=== PATIENT | female | born 1940 | race Two or more races ===

== ENCOUNTER 2024-05-25 20:14 | Inpatient (IN) | payer OTHER ==
[~2024-05-25] VITALS: Ht 157.5 cm; Wt 70.4 kg
--- NOTE | 2024-05-25 20:57 | ED.PDOC ---
Altered Mental Status HPI Comments 83-year-old female came to ER with daughter due to confusion. Per daughter, patient has history of dementia, noted for the past few days worsening of confusion and altered mental status, progressive weakness with inability/difficulty ambulating/standing up with recurrent falls. Currently complaining of bilateral upper extremity pain from possible fall. Vital signs were stable on arrival. No signs of head trauma. Patient appears to be in pain. Chief Complaint: Confusion Time Seen by MD: 20:57 Reviewed Notes: Nurses Notes Allergies: Coded Allergies: NO KNOWN ALLERGIES (Unverified , 05/25/24) Information Source: Relative Mode of Arrival: Wheelchair Severity: Unable to Care for Self Timing: Hours Duration: Since onset Prehospital treatment: None Quality: Decreased Alertness, Change in Behavior History of: Dementia Past Medical History PAST MEDICAL HISTORY: Dementia Surgical History: Denies all surgeries COMMUNICATIONS BILLING ANALYST History: Denies all COMMUNICATIONS BILLING ANALYST Hx Family History Family History: Reviewed,noncontributory to illness Social History Smoker: Non-Smoker Alcohol: Denies ETOH Use Drugs: Denies Drug Use Lives In: Home Constitutional: reports: fatigue, malaise, weakness; denies: chills, diaphoresis, fever, sweats, others EENTM: denies: blurred vision, double vision, ear bleeding, ear discharge, ear drainage, ear pain, ear ringing, eye pain, eye redness, hearing loss, mouth pain, mouth swelling, nasal discharge, nose bleeding, nose congestion, nose pain, photophobia, tearing, throat pain, throat swelling, voice changes, others Respiratory: denies: cough, hemoptysis, orthopnea, SOB at rest, shortness of breath, SOB with excertion, stridor, wheezing, others Cardiovascular: denies: chest pain, dizzy spells, diaphoresis, Dyspnea on exertion, edema, irregular heart beat, left arm pain, lightheadedness, palpitations, PND, syncope, others Gastrointestinal: denies: abdomen distended, abdominal pain, blood streaked bowels, constipated, diarrhea, dysphagia, difficulty swallowing, hematemesis, melena, nausea, poor appetite, poor fluid intake, rectal bleeding, rectal pain, vomiting, others Genitourinary: denies: abnormal vagina bleeding, burning, dyspareunia, dysuria, flank pain, frequency, hematuria, incontinence, pain, , vagina discharge, urgency, others Neurological: reports: weakness; denies: dizziness, fainting, headache, left sided numbness, left sided weakness, numbness, paresthesia, pre-existing deficit, right sided numbness, right sided weakness, seizure, speech problems, tingling, tremors, others Musculoskeletal: denies: back pain, gout, joint pain, joint swelling, muscle pain, muscle stiffness, neck pain, others Integumetry: denies: bruises, change in color, change in hair/nails, dryness, laceration, lesions, lumps, rash, wounds, others Allergic/Immunocompromised: denies: Difficulty Healing, Frequent Infections, Hives, Itching, others Hematologic/Lymphatic: denies: anemia, blood clots, easy bleeding, easy bruising, swollen glands, others Endocrine: denies: excessive hunger, excessive sweating, excessive thirst, excessive urination, flushing, intolerance to cold, intolerance to heat, unexplained weight gain, unexplained weight loss, others Psychiatric: denies: anxiety, bipolar disorder, depression, hopeless, panic disorder, schizophrenia, sleepless, suicidal, others Unable to Obtain due to: Altered Mental Status, Dementia Physical Exam General Appearance: Moderate Distress (Patient appears to be in [id number] distress due to bilateral wrist pain concerns as well as confusion.), Normal HEENT: Normal ENT Inspection, Pharynx Normal, TMs Normal Neck: Full Range of Motion, Non-Tender, Normal, Normal Inspection Respiratory: Chest Non-Tender, Lungs Clear, No Accessory Muscle Use, No Respiratory Distress, Normal Breath Sounds Cardiovascular: No Edema, No JVD, No Murmur, No Gallop, Normal Peripheral Pulses, Regular Rate/Rhythm Breast Exam: Deferred Gastrointestinal: No Organomegaly, Non Tender, No Pulsatile Mass, Normal Bowel Sounds, Soft Genitalia: Deferred Pelvic: Deferred Rectal: Deferred Extremities: No calf tenderness, Normal capillary refill, No pedal edema, Other (Bilateral wrists are diffusely tender to palpation throughout dorsal and ventral aspects. Left wrist reveals some unusual angulation. No definitive crepitus appreciated.) Musculoskeletal : Apperance: Normal Neurologic: Motor Weakness, No Sensory Deficits Cerebellar Function: NOT DONE Reflexes: NOT DONE Skin: Dry, Normal Color, Warm Lymphatic: No Adenopathy Was a procedure done? Was a procedure done?: No Differential Diagnosis (ALOC) Differential Diagnosis: Encephalopathy, Sepsis, CVA, Other (Dementia, wrist fracture, forearm fracture, wrist sprain, fall risk, failure to thrive) X-Ray, Labs, Meds, VS Vital Signs Date Time Temp Pulse Resp B/P (MAP) Pulse Ox O2 Delivery O2 Flow Rate FiO2 05/26/24 02:02 98.0 82 27 164/89 (114) 98 98.0 05/26/24 00:10 70 05/25/24 22:12 71 05/25/24 20:58 72 05/25/24 20:46 98.3 81 20 123/92 (102) 98 Lab Test 05/25/24 23:11 05/25/24 21:09 05/25/24 20:44 Range/Units Troponin I High Sensitivity 5 6 </=34 ng/L White Blood Count 8.4 4.4-10.8 10^3/uL Red Blood Count 4.74 4.0-5.20 10^6/uL Hemoglobin 11.8 L 12.2-16.2 g/dL Hematocrit 36.4 36.0-46.0 % Mean Corpuscular Volume 76.9 L 80.0-100.0 fL Mean Corpuscular Hemoglobin 24.9 L 28.0-32.0 pg Mean Corpuscular Hemoglobin Concent 32.4 32.0-36.0 g/dL Red Cell Distribution Width 26.8 H 11.8-14.3 % Platelet Count 280 140-450 10^3/uL Mean Platelet Volume 9.0 6.9-10.8 fL Neutrophils (%) (Auto) 84.4 H 37.0-80.0 % Lymphocytes (%) (Auto) 7.2 L 10.0-50.0 % Monocytes (%) (Auto) 7.2 0.0-12.0 % Eosinophils (%) (Auto) 0.6 0.0-7.0 % Basophils (%) (Auto) 0.6 0.0-2.0 % Neutrophils # (Auto) 7.1 1.6-8.6 10 ^3/uL Lymphocytes # (Auto) 0.6 0.4-5.4 10 ^3/uL Monocytes # (Auto) 0.6 0-1.3 10 ^3/uL Eosinophils # (Auto) 0 0-0.8 10 ^3/uL Basophils # (Auto) 0.1 0-0.2 10 ^3/uL Nucleated Red Blood Cells 0.0 % Platelet Estimate Adequate Anisocytosis (manual) Moderate Microcytosis Slight Ovalocytes Few Schistocytes Few D-Dimer, Quantitative 3.50 H 0.0-0.49 mg/L FEU Sodium Level 142 136-145 mmol/L Potassium Level 4.0 3.5-5.1 mmol/L Chloride Level 110 H 98-107 mmol/L Carbon Dioxide Level 24 20-31 mmol/L Anion Gap 8 5-15 Blood Urea Nitrogen 31 H 9-23 mg/dL Creatinine 1.15 H 0.550-1.02 mg/dL Glomerular Filtration Rate Calc 48 >90 mL/min BUN/Creatinine Ratio 27.0 H 10.0-20.0 Serum Glucose 143 H 74-106 mg/dL Lactic Acid Level 1.7 0.4-2.0 mmol/L Calcium Level 10.1 8.7-10.4 mg/dL Magnesium Level 2.2 1.6-2.6 mg/dL Total Bilirubin 0.3 0.2-1.0 mg/dL Aspartate Amino Transferase (AST) 28 13-40 U/L Alanine Aminotransferase (ALT) 18 7-40 U/L Alkaline Phosphatase 98 46-116 U/L Total Protein 7.2 5.7-8.2 g/dL Albumin 4.5 3.2-4.8 g/dL POC Glucose 138 H 70-106 mg/dl Current Medications Medications (Trade) Dose Ordered Sig/Nancy Route Start Time Stop Time Status Last Admin Enoxaparin Sodium (Lovenox) 40 mg ONCE ONCE SC 05/26/24 01:30 05/26/24 01:32 DC 05/26/24 02:30 Ceftriaxone Sodium 50 ml @ 100 mls/hr ONCE ONCE IV 05/26/24 01:45 05/26/24 02:14 DC 05/26/24 02:30 X-Ray, Labs, Meds, VS Comment All studies performed the ED were reviewed by me personally. Urinalysis was p ending at time of this note. Laboratories revealed what appears to be an acute on chronic renal concern as well as elevated D-dimer. Patient will require a V/Q scan to rule out PE. Patient will be started on Lovenox prophylactically. CT studies of the head was unremarkable for any acute intracranial process. Imaging studies of bilateral forearms with right distal radial fracture as well as a small styloid avulsion fracture. Left wrist revealed an distal ulnar fracture. Patient will be splinted for both and transferred to [facility] for continued care. Daughter states that the patient did test positive for a UTI a few days back, but she has not started the antibiotics. Patient will be given a dose of Rocephin prior to transfer. Spoke with Dr. Ellsworth at [facility] and advised him of all ED study findings. He agreed to accept the patient is a transfer. Authorization number [id number]. Time of 1ST Reevaluation: Reevaluation 1ST: Improved Consultation: PCP Patient Education/Counseling: Diagnosis, Treatment, Other (Patient has dementia) Family Education/Counseling: Diagnosis, Treatment Departure 1 Departure Time of Disposition: :24 Impression: Primary Impression: Confusion Additional Impressions: Elevated d-dimer Jyisi-uy-mnpozxc kidney injury Fracture of right distal radius Left ulnar fracture UTI (urinary tract infection) Disposition: 02 SHORT TERM HOSPITAL Condition: Fair Discharged With: Self, Relative Critical Care Note Critical Care Time?: No Stability Stability form required: No Heart Score Heart Score: Heart Score Response (Comments) Value History N/A 0 EKG N/A 0 Age N/A 0 Risk Factors N/A 0 Troponin N/A 0 Total 0 I personally scribed for ELIO AMOR PAC ([email or web address]) on 05/25/24 at 20:57. Electronically submitted by Mc Mendes ([email or web address]). ELIO AMOR PAC May 25, 2024 20:57
[2024-05-25] MEDS: HYDROcodone-ACET 5/325MG TAB PO ONE (21:00)
--- NOTE | 2024-05-25 21:31 | ECG ---
[facility] Test Date: 2024-05-25 Test Time: 20:58:57 Pat Name: PEYTON MODI Department: ER Room: 0222 Gender: F Hearing Therapist: DEVIN : 1940 Requested By: ELIO AMOR Order Number: [id number] Reading MD: Daniele Jacobs Measurements Intervals [place] Rate: 72 P: 53 W[place]: 153 QRS: 42 QRSD: 176 T: 19 QT: 365 QTc: 400 Interpretive Statements Sinus rhythm Probable left ventricular hypertrophy Inferior infarct, old Lateral infarct, acute Baseline wander in lead(s) I Electronically Signed On 06-02-2024 14:49:40 PST by Daniele Jacobs Please click the below link to view image of tracing.
[2024-05-25 21:33] LABS: Basophils # (auto) 0.1 10 ^3/uL (0-0.2); Basophils % (auto) 0.6 % (0.0-2.0); Eosinophils # (auto) 0 10 ^3/uL (0-0.8); Eosinophils % (auto) 0.6 % (0.0-7.0); Hematocrit 36.4 % (36.0-46.0); Hemoglobin 11.8 g/dL (12.2-16.2); Lymphocytes # (auto) 0.6 10 ^3/uL (0.4-5.4); Lymphocytes % (auto) 7.2 % (10.0-50.0); Mean Corpuscular Hemoglobin 24.9 pg (28.0-32.0); Mean Corpuscular Hgb Conc. 32.4 g/dL (32.0-36.0); Mean Corpuscular Volume 76.9 fL (80.0-100.0); Monocytes # (auto) 0.6 10 ^3/uL (0-1.3); Monocytes % (auto) 7.2 % (0.0-12.0); Neutrophils # (auto) 7.1 10 ^3/uL (1.6-8.6); Neutrophils % (auto) 84.4 % (37.0-80.0); Platelet Count (auto) 280 10^3/uL (140-450); Red Blood Cells 4.74 10^6/uL (4.0-5.20); White Blood Cell 8.4 10^3/uL (4.4-10.8)
[2024-05-25 21:39] LABS: Red Cell Distribution Width 26.8 % (11.8-14.3)
--- NOTE | 2024-05-25 21:48 | DVH ---
CLINICAL INDICATION: Trauma/fall TECHNIQUE: 2 radiographic views of the right forearm were obtained. Comparison: None FINDINGS/IMPRESSION: Minimally displaced fracture of the distal radius is suspected correlate with tenderness over that ar ea. The visualized joint space is well maintained. The alignment is anatomical. There is no radiopaque foreign body.
[2024-05-25 21:49] LABS: Alanine Aminotransferase 18 U/L (7-40); Albumin 4.5 g/dL (3.2-4.8); Alkaline Phosphatase 98 U/L (46-116); Anion Gap 8 (5-15); Aspartate Aminotransferase 28 U/L (13-40); Calcium 10.1 mg/dL (8.7-10.4); Carbon Dioxide 24 mmol/L (20-31); Magnesium 2.2 mg/dL (1.6-2.6); Sodium 142 mmol/L (136-145); Total Protein 7.2 g/dL (5.7-8.2)
--- NOTE | 2024-05-25 21:49 | DVH ---
CLINICAL INDICATION: Trauma/fall TECHNIQUE: 3 radiographic views of the right wrist were obtained. Comparison: None FINDINGS/IMPRESSION: Slightly impacted fracture through the distal radius is noted with possible avulsion off the styloid process of the distal ulna. The visualized joint space is well maintained. The alignment is anatomical. There is no radiopaque foreign body.
--- NOTE | 2024-05-25 21:50 | DVH ---
CLINICAL INDICATION: Trauma/fall TECHNIQUE: 3 views of the left wrist. Comparison: None FINDINGS/IMPRESSION: Acute ulnar styloid fracture. Indeterminate age fracture deformity of the distal radius Mild soft tissue swelling throughout the wrist
[2024-05-25 21:53] LABS: Bilirubin, Total 0.3 mg/dL (0.2-1.0); Blood Urea Nitrogen 31 mg/dL (9-23); Chloride 110 mmol/L (98-107); Glucose 143 mg/dL (74-106)
--- NOTE | 2024-05-25 21:53 | DVH ---
CLINICAL INDICATION: Trauma/fall TECHNIQUE: 2 radiographic views of the left wrist were obtained. Comparison: None FINDINGS/IMPRESSION: There is fracture of the distal radius which may represent chronic healed malunion fracture or acute impacted fracture. Recommend correlation with point tenderness and history. Questionable mild soft t issue edema of the distal forearm. There is chronic fracture deformity of the ulnar styloid. There is positive ulnar variance. There is deformity of the wrist on AP view. Moderate degenerative changes of the 1st carpometacarpal joint
--- NOTE | 2024-05-25 21:53 | DVH ---
CLINICAL INDICATION: Trauma/fall TECHNIQUE: 3 radiographic views of the right hand were obtained. Comparison: None FINDINGS/IMPRESSION: Marked narrowing and irregularity is noted of the carpometacarpal joint of the thumb.. There is a small calcification off the tip of the styloid process of the ulna can not exclude small a vulsion injury. The visualized joint space is well maintained. The alignment is anatomical. There is no radiopaque foreign body.
--- NOTE | 2024-05-25 21:53 | DVH ---
CHEST RADIOGRAPH Indication: Shortness of breath Technique: Single frontal view of the chest was obtained COMPARISON: None FINDINGS: Lines and Tubes: None Lungs: Clear Pleura: No effusion. No pneumothorax. Cardiomediastinal contours: Cardiomegaly Bones: Chronic fracture deformity of the right humeral head. IMPRESSION: 1. No acute disease.
--- NOTE | 2024-05-25 21:53 | DVH ---
EXAM: CT HEAD WITHOUT CONTRAST INDICATION: Confusion TECHNIQUE: CT of the head without intravenous contrast. Radiation Dose : 1. Head: CT Dose: CTDI volume is 57 mGy. Dose-length product is 2237 mGy*cm The dose indicators for CT are the volume Computed Tomography (CT) Dose Index (CTDIvol) and the Dose Length Product (DLP), and are measured in units of mGy and mGy-cm, respectively. These indicators are not patient dose, but values generated from the CT scanner acquisition factors. The report includes radiation exposure data for exposures received during this examination. COMPARISON: None FINDINGS: There is no evidence of acute intracranial hemorrhage, extra-axial collection, mass effect, midline s hift, herniation or hydrocephalus. The ventricles, sulci and cisterns are age appropriate. The rivera-white differentiation is intact. Patchy periventricular and subcortical white matter hypoattenuation is nonspecific but may be related to small vessel ischemic disease. The visualized paranasal sinuses and mastoid air cells are clear. The surrounding soft tissues and osseous structures are unremarkable. IMPRESSION: 1. No acute intracranial abnormality. Radiation optimization: All CT scans at this facility use at least one of these dose optimization pradip hniques: automated exposure control mA and/or kV adjustment per patient size (includes targeted exam s where dose is matched to clinical indication) or iterative reconstruction.
[2024-05-25 22:15] LABS: Platelet Estimate Adequate
[2024-05-25 22:16] LABS: Anisocytosis Moderate; Ovalocytes FEW
[2024-05-26] VITALS (9 sets, daily range): BP systolic 151; BP diastolic 79; PULSE 71–96; RESP 16–28; TEMP 97.9; O2SAT 93–98
--- NOTE | 2024-05-26 00:12 | ECG ---
[facility] Test Date: 2024-05-26 Test Time: 00:10:22 Pat Name: PEYTON MODI Department: ER Room: 0222 Gender: F Scleroscope Tester: DEVIN : 1940 Requested By: ELIO AMOR Order Number: [id number] Reading MD: Daniele Jacobs Measurements Intervals [place] Rate: 70 P: 78 DC: 149 QRS: 60 QRSD: 78 T: 54 QT: 385 QTc: 416 Interpretive Statements Sinus rhythm Inferior infarct, acute (LCx) Electronically Signed On 06-02-2024 14:52:08 PST by Daniele Jacobs Please click the below link to view image of tracing.
[2024-05-26] MEDS: ENOXAPARIN SOD 40 MG/0.4 ML SYRINGE SC ONE (02:30)
[2024-05-26] MEDS: cefTRIAXone 1GM/50ML D5W 50 ML IV ONE (02:30)
[2024-05-26] MEDS: HYDROcodone-ACET 5/325MG TAB PO ONE (06:16)
--- NOTE | 2024-05-26 07:19 | ECG ---
[facility] Test Date: 2024-05-25 Test Time: 22:12:31 Pat Name: PEYTON MODI Department: ER Room: 0222 Gender: F Pharmaceutical Worker: ZARA : 1940 Requested By: ELIO AMOR Order Number: [id number] Reading MD: Daniele Jacobs Measurements Intervals [place] Rate: 71 P: -47 ID: 163 QRS: 102 QRSD: 154 T: 27 QT: 378 QTc: 411 Interpretive Statements Ectopic atrial rhythm Left atrial enlargement RBBB and LPFB Lateral infarct, acute Artifact in lead(s) I,II,aVR,aVL,aVF,V1,V3,V4,V5,V6 Electronically Signed On 06-02-2024 14:50:41 PST by Daniele Jacobs Please click the below link to view image of tracing.
[2024-05-26] MEDS ORDERED: MORPHINE SULFATE INJ 2 MG/ml SYRG IV PRN (08:15)
[2024-05-26] MEDS ORDERED: ALBUTEROL SULF 2.5 MG/0.5ML(0.5%) NEB SOLN NEB PRN (08:15)
[2024-05-26] MEDS ORDERED: NITROGLYCERIN 0.4 MG SL TAB SL PRN (08:15)
[2024-05-26] MEDS: ENOXAPARIN SOD 40 MG/0.4 ML SYRINGE SC SCH (12:29)
[2024-05-26 14:59] LABS: Urine Bacteria FEW /hpf (None Seen); Urine Blood Negative /uL (Negative); Urine Clarity Turbid (Clear); Urine Color Light-Yellow (Yellow); Urine Hyaline Cast FEW /lpf (0 - 2); Urine Mucus FEW (None Seen); Urine Protein, UAD TRACE (Negative); Urine Specific Gravity 1.034 (1.001-1.035); Urine Squamous Epithelial Cell MOD /hpf (<5); Urine Urobilinogen Normal (Negative); Urine WBC 3 /hpf (0 - 5)
[2024-05-26] MEDS ORDERED: DONE10TA91 PO (23:55)
[2024-05-27] VITALS (10 sets, daily range): BP systolic 127–157; BP diastolic 56–97; PULSE 58–80; RESP 16–18; TEMP 97.3–99.4; O2SAT 95–98
[2024-05-27] MEDS ORDERED: SERT-289 PO (00:27)
[2024-05-27] MEDS ORDERED: FERR1TAB36 PO (00:31)
[2024-05-27 07:45] LABS: Basophils # (auto) 0 10 ^3/uL (0-0.2); Hematocrit 29.5 % (36.0-46.0); Hemoglobin 9.6 g/dL (12.2-16.2); Mean Corpuscular Hemoglobin 25.1 pg (28.0-32.0); Mean Corpuscular Volume 77.2 fL (80.0-100.0); Red Blood Cells 3.82 10^6/uL (4.0-5.20); Red Cell Distribution Width 26.1 % (11.8-14.3)
[2024-05-27 07:49] LABS: Basophils % (auto) 0.4 % (0.0-2.0); Eosinophils # (auto) 0.1 10 ^3/uL (0-0.8); Eosinophils % (auto) 1.7 % (0.0-7.0); Lymphocytes # (auto) 0.8 10 ^3/uL (0.4-5.4); Lymphocytes % (auto) 12.4 % (10.0-50.0); Mean Corpuscular Hgb Conc. 32.5 g/dL (32.0-36.0); Monocytes # (auto) 0.7 10 ^3/uL (0-1.3); Monocytes % (auto) 11.5 % (0.0-12.0); Neutrophils # (auto) 4.7 10 ^3/uL (1.6-8.6); Platelet Count (auto) 203 10^3/uL (140-450); White Blood Cell 6.4 10^3/uL (4.4-10.8)
[2024-05-27 07:54] LABS: Alanine Aminotransferase 15 U/L (7-40); Alkaline Phosphatase 73 U/L (46-116); Anion Gap 8 (5-15); Aspartate Aminotransferase 32 U/L (13-40); Blood Urea Nitrogen 21 mg/dL (9-23); Carbon Dioxide 23 mmol/L (20-31); Glucose 92 mg/dL (74-106); Potassium 3.9 mmol/L (3.5-5.1); Sodium 140 mmol/L (136-145)
[2024-05-27 07:55] LABS: Bilirubin, Total 0.4 mg/dL (0.2-1.0)
[2024-05-27 08:00] LABS: Calcium 8.7 mg/dL (8.7-10.4); Chloride 109 mmol/L (98-107); Total Protein 5.5 g/dL (5.7-8.2)
[2024-05-27 08:13] LABS: Albumin 3.5 g/dL (3.2-4.8)
[2024-05-27 09:39] LABS: Anisocytosis Slight
[2024-05-27 09:40] LABS: Platelet Estimate Adequate
--- NOTE | 2024-05-27 13:00 | DVHPN2 ---
Progress Note Date Seen: May 27, 2024 Medical Necessity Reason Pt with a Central, PICC or Fol: Yes The following are medically ne: Wick Catheter Reason for wick catheter: Strict I&O Subjective Patient reports: No new complaints Review of Systems: HEENT:Normal, CVS:Normal, RESPIRATORY:Normal, GI:Normal, :Normal, MSK:Normal, NEURO:Normal Objective vital signs Vital Sign Date Time Temp Pulse Resp B/P (MAP) Pulse Ox O2 Delivery O2 Flow Rate FiO2 05/27/24 08:00 77 18 95 Room Air* 0 21 05/27/24 05:00 97.7 151/87 (108) 97.7 Total Intake and Output 05/26/24 05/26/24 05/27/24 15:00 23:00 07:00 Intake Total 125 ml Output Total 450 ml Balance -325 ml medications Current Medications Medications Dose Ordered Sig/Nancy Route Start Time Stop Time Status Last Admin Dose Admin Enoxaparin Sodium 40 mg DAILY SC 05/26/24 10:00 05/27/24 08:53 40 MG Acetaminophen 650 mg Q6HP PRN PO 05/26/24 08:15 Nitroglycerin 0.4 mg Q5MINP PRN SL 05/26/24 08:15 Morphine Sulfate 2 mg Q30M PRN IV 05/26/24 08:15 Albuterol 2.5 mg Q4HPRN PRN NEB 05/26/24 08:15 Examination: GENERAL:Normal, HEENT:Normal, NECK:Normal, LUNGS:Normal, CVS:Normal, ABDOMEN:Normal, MSK:Normal, MSK:Abnormal (bilateral wrist dressings), SKIN:Normal, NEURO:Normal, :Normal laboratory and microbiology Laboratory Tests 05/27/24 06:30 Test 05/27/24 06:30 Range/Units Serum Glucose 92 74-106 mg/dL Problem List/Assessment/Plan Problem List/Assessment/Plan #1 encephalopathy ? metabolic #2 ?uti: culture, iv rocephin #3 dementia #4 bilateral wrist fractures: ortho eval advance care planning- full code- time spent 19 mins Plan discussed with: Patient Date of Service: May 27, 2024 Billing Provider: MARYCRUZ PADILLA MD Common Visit Codes: [id number] INP/OBS CARE(HIGH) Secondary Visit Codes: 73422-[id number] CARE PLAN 30 MINUTES MARYCRUZ PADILLA MD May 27, 2024 13:00
[2024-05-27] MEDS: cefTRIAXone 1GM/50ML D5W 50 ML IV ONE (13:53)
[2024-05-27] MEDS: ACETAMINOPHEN 325 MG TAB PO PRN (21:38)
[2024-05-27] MEDS: cloNIDine HCL 0.1 MG TAB PO ONE (22:56)
[2024-05-28] VITALS (10 sets, daily range): BP systolic 135–145; BP diastolic 64–78; PULSE 52–87; RESP 16–20; TEMP 97.7–98.7; O2SAT 94–98
[2024-05-28 08:14] LABS: Anion Gap 6 (5-15); Carbon Dioxide 25 mmol/L (20-31); Potassium 3.8 mmol/L (3.5-5.1); Sodium 140 mmol/L (136-145)
[2024-05-28 08:16] LABS: Calcium 8.9 mg/dL (8.7-10.4)
[2024-05-28 08:18] LABS: Basophils # (auto) 0 10 ^3/uL (0-0.2); Eosinophils # (auto) 0.2 10 ^3/uL (0-0.8); Hemoglobin 10.2 g/dL (12.2-16.2); Lymphocytes # (auto) 0.6 10 ^3/uL (0.4-5.4); Nucleated Red Blood Cells % 0.1 %; White Blood Cell 4.7 10^3/uL (4.4-10.8)
[2024-05-28 08:20] LABS: BUN/Creatinine Ratio 22.2 (10.0-20.0); Blood Urea Nitrogen 16 mg/dL (9-23); Glucose 82 mg/dL (74-106)
[2024-05-28 08:21] LABS: Basophils % (auto) 0.7 % (0.0-2.0); Hematocrit 30.9 % (36.0-46.0); Lymphocytes % (auto) 12.6 % (10.0-50.0); Mean Corpuscular Hemoglobin 25.3 pg (28.0-32.0); Mean Corpuscular Hgb Conc. 32.9 g/dL (32.0-36.0); Mean Corpuscular Volume 76.9 fL (80.0-100.0); Monocytes # (auto) 0.7 10 ^3/uL (0-1.3); Monocytes % (auto) 14.3 % (0.0-12.0); Neutrophils # (auto) 3.2 10 ^3/uL (1.6-8.6); Neutrophils % (auto) 68.4 % (37.0-80.0); Platelet Count (auto) 195 10^3/uL (140-450); Red Blood Cells 4.01 10^6/uL (4.0-5.20); Red Cell Distribution Width 24.5 % (11.8-14.3)
[2024-05-28 08:37] LABS: Chloride 109 mmol/L (98-107)
--- NOTE | 2024-05-28 08:40 | DVHSR ---
APPROVED REPORT EXAM: Two-dimensional and M-mode echocardiogram with Doppler and color Doppler. Blood Pressure: 164/89 mmHg INDICATION Systolic/diastolic heart failure RISK FACTORS Obesity: Height: 5'2", Weight: 308 DIMENSIONS LVDd4.1 (3.8-5.7cm)LA (2D) (1.9-4.0cm)Aortic Root3.2 (2.0-3.7cm) LVDs2.8 (2.5-4.0cm)LA (MM) (1.9-4.0cm)Aortic Cusp Exc1.9 (1.5-2.0cm) EF (%) 55.0 (55-70%)Rt. Atrium (1.9-4.0cm)Asc. Aorta cm IVSd1.0 (0.7-1.1cm)RV (D) (1.8-2.4cm) PWd1.0 (0.7-1.1cm) Mitral Valve MitralMitral Stenosis E wave1.19m/sMV Mean GR.mmHg A wave1.33m/sMV Peak GR.mmHg E/A ratio0.92D MVAcm2 DECEL [id number] 1/2 Timems Aortic Valve Aortic ValveAortic Stenosis V11.07m/Rosemarie Mean GR.5mmHg V21.58m/Rosemarie Peak GR.10mmHg LVOT Diameter1.9 (1.8-2.4cm)Doppler AVA1.92cm2 Pulmonic Valve V21.23m/s Tricuspid Valve TR Velocity3.11m/s [id number] LEFT VENTRICLE The left ventricle is of normal size. Wall thickness is normal. Ejection fraction is likely preserv ed and estimated at 55%. Study is suboptimal to assess for wall motion abnormalities. There is grad e II diastolic dysfunction. E to E prime ratio is elevated suggestive of high filling pressure. RIGHT VENTRICLE Not well visualized. ATRIA The left atrium is of normal size. Right atrium is not well visualized. MITRAL VALVE There is mild mitral annular calcification. No significant mitral regurgitation. PULMONIC VALVE Likely normal. TRICUSPID VALVE Not well visualized. There appears to be mild tricuspid regurgitation. PA systolic pressure is estim ated at 42 mm Hg. AORTIC VALVE Trileaflet in morphology. Leaflets are sclerotic. No significant stenosis or regurgitation. GREAT VESSELS Aortic root is of normal size. Proximal ascending aorta is not well visualized. PERICARDIAL EFFUSION No significant pericardial effusion. IVC is of normal size and collapses normally with inspiration. Other Information Quality : Technically LimitedRhythm : Technically limited study due to body habitus, patient sitting up. Conclusion The study is very technically limited. The left ventricle is of normal size and likely normal systolic function. There is grade II diastolic dysfunction with evidence of elevated left-sided filling pressure. The right ventricle is not well visualized. No hemodynamically significant valvular disease. PA systolic pressure is estimated at 42 mm Hg.
[2024-05-28] MEDS: cefTRIAXone 1GM/50ML D5W 50 ML IV SCH (10:01)
--- NOTE | 2024-05-28 10:19 | DVHPN2 ---
Progress Note Date Seen: May 28, 2024 Medical Necessity Reason Pt with a Central, PICC or Fol: Yes The following are medically ne: Wick Catheter Reason for wick catheter: Strict I&O Subjective Patient reports: No new complaints Review of Systems: HEENT:Normal, CVS:Normal, RESPIRATORY:Normal, GI:Normal, :Normal, MSK:Normal, NEURO:Normal Objective vital signs Vital Sign Date Time Temp Pulse Resp B/P (MAP) Pulse Ox O2 Delivery O2 Flow Rate FiO2 05/28/24 09:37 97.7 55 19 145/70 (95) 98 97.7 05/27/24 22:51 Room Air 0.0 05/27/24 22:51 21 Total Intake and Output 05/27/24 05/27/24 05/28/24 15:00 23:00 07:00 Intake Total 700 ml 300 ml Output Total 350 ml 3 ml Balance 350 ml 297 ml medications Current Medications Medications Dose Ordered Sig/Nancy Route Start Time Stop Time Status Last Admin Dose Admin Enoxaparin Sodium 40 mg DAILY SC 05/26/24 10:00 05/28/24 10:02 40 MG Acetaminophen 650 mg Q6HP PRN PO 05/26/24 08:15 05/27/24 21:38 650 MG Nitroglycerin 0.4 mg Q5MINP PRN SL 05/26/24 08:15 Morphine Sulfate 2 mg Q30M PRN IV 05/26/24 08:15 Albuterol 2.5 mg Q4HPRN PRN NEB 05/26/24 08:15 Ceftriaxone Sodium 50 ml @ 100 mls/hr DAILY@09 IV 05/28/24 09:00 05/28/24 10:01 100 MLS/HR Examination: GENERAL:Normal, HEENT:Normal, NECK:Normal, LUNGS:Normal, CVS:Normal, ABDOMEN:Normal, MSK:Normal, MSK:Abnormal (bilateral wrist dressings), SKIN:Normal, NEURO:Normal, :Normal laboratory and microbiology Laboratory Tests 05/28/24 07:10 Test 05/28/24 07:10 Range/Units Serum Glucose 82 74-106 mg/dL Problem List/Assessment/Plan Problem List/Assessment/Plan #1 encephalopathy ? metabolic #2 ?uti: culture, iv rocephin #3 dementia #4 bilateral wrist fractures: ortho eval advance care planning- full code- time spent 19 mins Plan discussed with: Patient My Orders My Orders Orders - MARYCRUZ PADILLA MD Procedure Category Date Status Time * Orthopedic Consult CONS 05/27/24 Transmitted 12:56 Urine Bacterial JUANITO 05/27/24 In Process Culture 12:56 Ceftriaxone 1gm/50ml PHA 05/28/24 In Process D5w (Rocephin) 09:00 Vitamin B12 LAB 05/28/24 In Process 06:00 Discontinue Tele RELL 05/28/24 Transmitted 10:13 Transfer Orders XFER 05/28/24 Transmitted 10:13 Date of Service: May 28, 2024 Billing Provider: MARYCRUZ PADILLA MD Common Visit Codes: [id number] INP/OBS CARE(HIGH) Secondary Visit Codes: [id number] CARE PLAN 30 MINUTES MARYCRUZ PADILLA MD May 28, 2024 10:19
--- NOTE | 2024-05-28 13:55 | DVHINCON2 ---
Date of service: May 28, 2024 Reason for Consultation Bilateral wrist fracture History of Present Illness Mrs. Law is an 83-year-old female who was brought to the hospital due to w orsening of confusion and altered mental status. Patient was brought to the hospital by her daughter who reports she has had progressively worsening weakness and difficulty ambulating and has had multiple recurrent falls and had x-rays of both wrist which revealed bilateral wrist fractures and consulted us for further evaluation. Past Medical History Dementia Past Surgical History Denies Family History: Patient reports no known family medical history. Family History Noncontributory Social History Unable to obtain due to patient's confusion Allergies: Coded Allergies: NO KNOWN ALLERGIES (Unverified , 05/25/24) Home Meds Reported Medications Ferrous Sulfate (Iron (Ferrous Sulfate)) 50 Mg Tab, PO EOD, TAB 05/27/24 Sertraline HCl (Sertraline HCl) 50 Mg Tab, 10 MG PO DAILY 05/27/24 Donepezil Hydrochloride (Donepezil Hydrochloride) 10 Mg Tab, 1 TAB PO DAILY 05/26/24 Current Medications Current Medications Medications (Trade) Dose Ordered Sig/Nancy Route PRN Reason Start Time Stop Time Status Last Admin Ceftriaxone Sodium 50 ml @ 100 mls/hr DAILY@09 IV 05/28/24 09:00 05/28/24 10:01 Review of Systems 10 point review of systems negative except as per HPI Vital Signs Vital Signs Date Time Temp Pulse Resp B/P (MAP) Pulse Ox O2 Delivery O2 Flow Rate FiO2 05/28/24 12:25 97 Room Air 0.0 05/28/24 12:25 21 05/28/24 09:37 97.7 55 19 145/70 (95) 97.7 Physical Exam General appearance: Alert to name but in no acute distress HEENT: Normal ENT inspection, pharynx normal, TMs normal Neck: Full range of motion, nontender, normal inspection Respiratory: Chest nontender, without accessory muscle use, no respiratory distress Cardiovascular: No edema, no JVD, normal peripheral pulses Gastrointestinal: Soft, nontender, no organomegaly Musculoskeletal: Bilateral wrist range of motion not fully evaluated as patient remains in bilateral volar splint, no tenderness to palpation to bilateral w rists, normal capillary refill, no distal edema, neurovascularly intact. Skin: Dry, normal color, warm Lymphatic: No adenopathy Labs/Diagnostic Data Labs Test 05/28/24 07:10 05/27/24 06:30 05/26/24 14:27 05/26/24 08:22 Range/Units White Blood Count 4.7 # 4.4-10.8 10^3/uL Red Blood Count 4.01 4.0-5.20 10^6/uL Hemoglobin 10.2 L 12.2-16.2 g/dL Hematocrit 30.9 L 36.0-46.0 % Mean Corpuscular Volume 76.9 L 80.0-100.0 fL Mean Corpuscular Hemoglobin 25.3 L 28.0-32.0 pg Mean Corpuscular Hemoglobin Concent 32.9 32.0-36.0 g/dL Red Cell Distribution Width 24.5 H 11.8-14.3 % Platelet Count 195 140-450 10^3/uL Mean Platelet Volume 8.9 6.9-10.8 fL Neutrophils (%) (Auto) 68.4 37.0-80.0 % Lymphocytes (%) (Auto) 12.6 10.0-50.0 % Monocytes (%) (Auto) 14.3 H 0.0-12.0 % Eosinophils (%) (Auto) 4.0 0.0-7.0 % Basophils (%) (Auto) 0.7 0.0-2.0 % Neutrophils # (Auto) 3.2 1.6-8.6 10 ^3/uL Lymphocytes # (Auto) 0.6 0.4-5.4 10 ^3/uL Monocytes # (Auto) 0.7 0-1.3 10 ^3/uL Eosinophils # (Auto) 0.2 0-0.8 10 ^3/uL Basophils # (Auto) 0 0-0.2 10 ^3/uL Nucleated Red Blood Cells 0.1 % Sodium Level 140 136-145 mmol/L Potassium Level 3.8 3.5-5.1 mmol/L Chloride Level 109 H 98-107 mmol/L Carbon Dioxide Level 25 20-31 mmol/L Anion Gap 6 5-15 Blood Urea Nitrogen 16 9-23 mg/dL Creatinine 0.72 0.550-1.02 mg/dL Glomerular Filtration Rate Calc 83 >90 mL/min BUN/Creatinine Ratio 22.2 H 10.0-20.0 Serum Glucose 82 74-106 mg/dL Calcium Level 8.9 8.7-10.4 mg/dL Thyroid Stimulating Hormone (TSH) 3.07 0.55-4.78 uIU/mL Platelet Estimate Adequate Anisocytosis (manual) Slight Microcytosis Slight [place] Cells Few Schistocytes Few Total Bilirubin 0.4 0.2-1.0 mg/dL Aspartate Amino Transferase (AST) 32 13-40 U/L Alanine Aminotransferase (ALT) 15 7-40 U/L Alkaline Phosphatase 73 46-116 U/L Total Protein 5.5 L 5.7-8.2 g/dL Albumin 3.5 3.2-4.8 g/dL Urine Color Light-yellow Yellow Urine Clarity Turbid H Clear Urine pH 6.0 5.0-9.0 Urine Specific [place] 1.034 1.001-1.035 Urine Protein Trace H Negative Urine Ketones Negative Negative Urine Blood Negative Negative /uL Urine Nitrite Negative Negative Urine Bilirubin Negative Negative Urine Urobilinogen Normal Negative mg/dL Urine Leukocyte Esterase Negative Negative /uL Urine RBC 2 0 - 4 /hpf Urine WBC 3 0 - 5 /hpf Urine Squamous Epithelial Cells Mod <5 /hpf Urine Bacteria Few H None Seen /hpf Urine Hyaline Casts Few 0 - 2 /lpf Urine Mucus Few None Seen Urine Glucose Normal Normal mg/dL D-Dimer, Quantitative 1.37 H 0.0-0.49 mg/L FEU Magnesium Level 2.1 1.6-2.6 mg/dL Test 05/25/24 23:11 05/25/24 21:09 05/25/24 20:44 Range/Units Troponin I High Sensitivity 5 </=34 ng/L Ovalocytes Few Lactic Acid Level 1.7 0.4-2.0 mmol/L POC Glucose 138 H 70-106 mg/dl Microbiology Date/Time Source Procedure Growth Status 05/27/24 15:00 Urine - [place] Urine Culture - Preliminary Resulted Right wrist x-ray reviewed and demonstrated: Slightly impacted fracture through the distal radius is noted with possible avulsion off the styloid process of the distal ulna. Left wrist x-ray reviewed demonstrated: Acute ulnar styloid fracture. Indeterminate age fracture deformity of the distal radius Mild soft tissue swelling throughout the wrist Assessment Bilateral distal radius and ulnar styloid fractures Plan/Recommendation After discussing her case and reviewing her imaging studies with Dr. Erickson we have recommended against any surgical intervention at this time and instead a dvised to continue with conservative treatment with Smiley splints and to follow up with our office on an outpatient basis for further evaluation and further imaging studies. Please contact us if there are any further changes or questions. Thank you for allowing us to participate in the care of your patient. Plan discussed with: Patient GILBERTWILLIAM May 28, 2024 13:55
[2024-05-29 01:00] VITALS: PULSE 89; RESP 17; TEMP 98.7; O2SAT 95
[2024-05-29 05:00] VITALS: BP 153/93; PULSE 73; RESP 18; TEMP 97.8; O2SAT 97
[2024-05-29 09:00] VITALS: BP 110/93; PULSE 72; RESP 14; TEMP 98.7; O2SAT 94
[2024-05-29] MEDS ORDERED: CYAN500T39 PO (10:40)
--- NOTE | 2024-05-29 10:58 | DVHDS ---
DATE OF DISCHARGE: 05/29/2024 HISTORY OF PRESENT ILLNESS: The patient is an 83-year-old lady who was admitted with a history of fall and confusion. The patient has history of subsequent pain in the bilateral upper extremities. She has history of dementia. HOSPITAL COURSE: The patient had x-rays of both hands that showed evidence of ulnar styloid fracture. The patient had a CT that was unremarkable. She had a UTI for which she was given IV antibiotics. The patient's TSH was normal. The vitamin B12 level was low at 104. The patient was seen by Orthopedics, who recommended splints for both the hands. The patient will now be discharged home with bilateral splints and follow up with Orthopedics as well as vitamin B12 500 mcg daily. I discussed this plan with her daughter, Toshia. The patient will resume the rest of her home medications. She will have home physical therapy. FINAL DIAGNOSES: Therefore, * Bilateral wrist fractures, status post fall. * Encephalopathy, questionable metabolic. * Urinary tract infection. * Dementia. * Vitamin B12 deficiency. Time spent in discharge planning and review of plan with the patient, daughter and nursing was 38 minutes. MD ERIN Nolan/JALEEL TID: [id number] RECEIPT: [id number]
[2024-05-29] MEDS: CYANOCOBALAMIN (B-12) 1000 MCG/1 ML VIAL SUBCUT ONE (12:06)
[2024-05-29 13:00] VITALS: BP 117/70; PULSE 89; RESP 15; TEMP 98.6; O2SAT 95
[2024-05-29 17:00] VITALS: BP 126/67; PULSE 71; RESP 15; TEMP 97.6; O2SAT 96
[2024-05-29 21:00] VITALS: BP 166/60; PULSE 78; RESP 19; TEMP 98; O2SAT 93
[2024-05-30 01:00] VITALS: BP 121/64; PULSE 60; RESP 20; TEMP 98.5; O2SAT 96
[2024-05-30 05:00] VITALS: BP 170/72; PULSE 62; RESP 20; TEMP 98.1; O2SAT 96
[2024-05-30 09:00] VITALS: BP 134/72; PULSE 60; RESP 20; O2SAT 94
--- NOTE | 2024-05-30 09:43 | DVHPN2 ---
Progress Note Date Seen: May 30, 2024 Medical Necessity Reason Pt with a Central, PICC or Fol: No Subjective Patient reports: No new complaints Review of Systems: HEENT:Normal, CVS:Normal, RESPIRATORY:Normal, GI:Normal, :Normal, MSK:Normal, NEURO:Normal Objective vital signs Vital Sign Date Time Temp Pulse Resp B/P (MAP) Pulse Ox O2 Delivery O2 Flow Rate FiO2 05/30/24 09:00 60 20 134/72 (92) 94 05/30/24 07:40 Room Air* 0 21 05/30/24 05:00 98.1 98.1 Total Intake and Output 05/29/24 05/29/24 05/30/24 15:00 23:00 07:00 Intake Total 50 ml 615 ml 800 ml Output Total 700 ml 500 ml Balance 50 ml -85 ml 300 ml medications Current Medications Medications Dose Ordered Sig/Nancy Route Start Time Stop Time Status Last Admin Dose Admin Enoxaparin Sodium 40 mg DAILY SC 05/26/24 10:00 05/30/24 08:51 40 MG Acetaminophen 650 mg Q6HP PRN PO 05/26/24 08:15 05/27/24 21:38 650 MG Nitroglycerin 0.4 mg Q5MINP PRN SL 05/26/24 08:15 Morphine Sulfate 2 mg Q30M PRN IV 05/26/24 08:15 Albuterol 2.5 mg Q4HPRN PRN NEB 05/26/24 08:15 Cancel Ceftriaxone Sodium 50 ml @ 100 mls/hr DAILY@09 IV 05/28/24 09:00 05/30/24 08:50 100 MLS/HR Examination: GENERAL:Normal, HEENT:Normal, NECK:Normal, LUNGS:Normal, CVS:Normal, ABDOMEN:Normal, MSK:Normal, SKIN:Normal, NEURO:Normal, :Normal laboratory and microbiology Laboratory Tests 05/28/24 07:10 Test 05/28/24 07:10 Range/Units Serum Glucose 82 74-106 mg/dL Microbiology Date/Time Source Procedure Growth Status 05/27/24 15:00 Urine - [place] Urine Culture - Preliminary Resulted Problem List/Assessment/Plan Problem List/Assessment/Plan #1 encephalopathy ? metabolic #2 ?uti: culture, iv rocephin #3 dementia #4 bilateral wrist fractures: bilateral splints advance care planning- full code- time spent 19 mins Plan discussed with: Patient My Orders My Orders Orders - MARYCRUZ PADILLA MD Procedure Category Date Status Time * Local Hazmat Driver CONS 05/29/24 Transmitted Consult Date of Service: May 30, 2024 Billing Provider: MARYCRUZ PADILLA MD Common Visit Codes: [id number] INP/OBS CARE(HIGH) MARYCRUZ PADILLA MD May 30, 2024 09:43
[2024-05-30 13:00] VITALS: BP 133/78; PULSE 70; RESP 20; TEMP 98.3; O2SAT 94
[2024-05-30 17:06] VITALS: BP 139/76; PULSE 73; RESP 18; TEMP 98.3; O2SAT 96
== END 2024-05-30 20:54 | disposition home health service (06) | DRG 70 ==
LOC: ER 20:14 → TELE 05-26 08:02 → TELE-CENTR 05-26 23:00 → CENTRAL 05-28 10:46
PROVIDERS: ADMIT Internal Medicine; ATTEND Internal Medicine
PROC: 2W3FX1Z Immobilization of Left Hand using Splint (ICD-10-PCS; principal; 2024-05-28)
PROC: 2W3EX1Z Immobilization of Right Hand using Splint (ICD-10-PCS; 2024-05-28)
DX: G93.41 Metabolic encephalopathy (principal); N17.0 Acute kidney failure with tubular necrosis; N30.00 Acute cystitis without hematuria; S52.502A Unspecified fracture of the lower end of left radius, initial encounter for closed fracture; S52.611A Displaced fracture of right ulna styloid process, initial encounter for closed fracture; S52.501A Unspecified fracture of the lower end of right radius, initial encounter for closed fracture; S52.612A Displaced fracture of left ulna styloid process, initial encounter for closed fracture; N39.0 Urinary tract infection, site not specified; I16.0 Hypertensive urgency; N18.9 Chronic kidney disease, unspecified; F03.90 Unspecified dementia, unspecified severity, without behavioral disturbance, psychotic disturbance, mood disturbance, and anxiety; E53.8 Deficiency of other specified B group vitamins; W18.39XA Other fall on same level, initial encounter; Y93.89 Activity, other specified; Y92.89 Other specified places as the place of occurrence of the external cause; Y99.8 Other external cause status
CPT/HCPCS: 36415; 70450; 71045; 73090; 73110; 73130; 80048; 80053; 81001; 82607; 82962; 83605; 83735; 84443; 84484; 85025; 85379; 87086; 93005; 93306; 97110; 97116; 97163; 97530; G0378

== ENCOUNTER 2025-04-01 18:55 | Inpatient (IN) | payer OTHER ==
[~2025-04-01] VITALS: Ht 154.9 cm; Wt 64.2 kg
[~2025-04-01 18:55] MED LIST: CYAN500T39 PO; DONE10TA91 PO; FERR1TAB36 PO; SERT-289 PO
--- NOTE | 2025-04-01 20:22 | ED.PDOC ---
History of Present Illness HPI Comments 84-year-old female presents to the ER N/A wheelchair being pushed by daughter with a chief complaint of ALOC. Daughter reports that she was called from the residential facility the the patient lives in stating that the patient has not been eating, in his no again normal. When the daughter arrived to visit the patient, the patient was lying down on the bed and had a right facial swelling which is now gone at this time. The daughter noticed that this is not right with the patient in the sudden go to [place], for which EN route to [place] the patient has started become not coherent in shaking which prompted the patient to go to [facility] which was closer. Daughter notes on the patient having a low-grade fever. Patient's states on having lower extremity pain. Patient does have bilateral edema. Denies any other symptoms at this time. PHYSICAL EXAM: General: Awake, alert and oriented. No acute distress. Skin: Skin in warm, dry and intact. Appropriate color for ethnicity. HEENT: The head is normocephalic and atraumatic. Conjunctivae are clear without exudates or hemorrhage. Sclera is non-icteric. Eyelids are normal in appearance without swelling or lesions. Oral mucosa is pink and moist Neck: The neck is supple with normal range of motion. No JVD. Cardiac: Heart rate and rhythm are normal. No murmurs, gallops, or rubs are auscultated. Respiratory: No signs of respiratory distress. Lung sounds are clear in all lobes bilaterally without rales, rhonchi, or wheezes. Abdominal: Abdomen is soft, non-tender without distention, guarding or rigidity. Bowel sounds are present and normoactive in all four quadrants. Extremities: Bilateral lower extremity edema Neurological: The patient is awake, alert and oriented to person, place, and time with normal speech. Speech is clear. There is no facial asymmetry. Psychiatric: Appropriate mood and affect. Good judgement and insight. REVIEW OF SYSTEMS: General: No fever, no chills, or fatigue HEENT: No sore throat, no earache, no congestion, no neck pain. Cardiac: No chest pain. No palpitations. Lungs: No shortness of breath, no cough. GI: No nausea, no vomiting, no diarrhea, no constipation, no abdominal pain : No dysuria, frequency, or urgency. No hematuria. Musculoskeletal: No joint pain , no joint swelling, no extremity edema. Skin: No rash, no itching. Neuro: No headache, no dizziness, no weakness (And as sated in HPI) Patient is altered Chief Complaint: ALOC Time Seen by MD: 19:40 Reviewed Notes: Nurses Notes, Medications, Allergies Allergies: Coded Allergies: NO KNOWN ALLERGIES (Unverified , 05/25/24) Home Meds Active Scripts Cyanocobalamin (Vitamin B12) 500 Mcg Tab, 500 MCG PO DAILY for 30 Days, #30 TAB 3 Refills Prov:MARYCRUZ PADILLA MD 05/29/24 Reported Medications Ferrous Sulfate (Iron (Ferrous Sulfate)) 50 Mg Tab, PO EOD, TAB 05/27/24 Sertraline HCl (Sertraline HCl) 50 Mg Tab, 10 MG PO DAILY 05/27/24 Donepezil Hydrochloride (Donepezil Hydrochloride) 10 Mg Tab, 1 TAB PO DAILY 05/26/24 Information Source: Patient, Relative (Child) Mode of Arrival: Wheelchair Severity: Moderate Timing: Hours Duration: Since onset, Hours Prehospital treatment: None Past Medical History PAST MEDICAL HISTORY: Dementia, UTI'S Surgical History: Denies all surgeries 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 Was a procedure done?: No Differential Dx Considerations may include: Differential diagnosis considered includes but not limited to intracranial hemorrhage, stroke, head injury, seizure, metabolic disturbance, electrolyte imbalance, infection, substance intoxication, psychiatric cause, other systemic illness, other X-Ray, Labs, Meds, VS Vital Signs Date Time Temp Pulse Resp B/P (MAP) Pulse Ox O2 Delivery O2 Flow Rate FiO2 04/01/25 22:35 98.2 71 16 155/59 (91) 96 98.2 04/01/25 19:05 98.0 88 16 146/89 95 98.0 Lab Test 04/01/25 23:33 04/01/25 20:18 04/01/25 19:15 Range/Units Influenza Type A Antigen Negative Negative Influenza Type B Antigen Negative Negative SARS-CoV-2 Antigen (Rapid) Negative NEGATIVE White Blood Count 5.2 4.4-10.8 10^3/uL Red Blood Count 2.65 L 4.0-5.20 10^6/uL Hemoglobin 4.2 *L 12.2-16.2 g/dL Hematocrit 14.7 L 36.0-46.0 % Mean Corpuscular Volume 55.7 L 80.0-100.0 fL Mean Corpuscular Hemoglobin 15.7 L 28.0-32.0 pg Mean Corpuscular Hemoglobin Concent 28.2 L 32.0-36.0 g/dL Red Cell Distribution Width 18.7 H 11.8-14.3 % Platelet Count 343 140-450 10^3/uL Mean Platelet Volume 8.6 6.9-10.8 fL Neutrophils (%) (Auto) 71.2 37.0-80.0 % Lymphocytes (%) (Auto) 16.0 10.0-50.0 % Monocytes (%) (Auto) 9.6 0.0-12.0 % Eosinophils (%) (Auto) 1.9 0.0-7.0 % Basophils (%) (Auto) 1.3 0.0-2.0 % Neutrophils # (Auto) 3.7 1.6-8.6 10 ^3/uL Lymphocytes # (Auto) 0.8 0.4-5.4 10 ^3/uL Monocytes # (Auto) 0.5 0-1.3 10 ^3/uL Eosinophils # (Auto) 0.1 0-0.8 10 ^3/uL Basophils # (Auto) 0.1 0-0.2 10 ^3/uL Nucleated Red Blood Cells 1.2 % Platelet Estimate Adequate Large Platelets Few Hypochromasia (manual) Marked Poikilocytosis (manual) Slight Anisocytosis (manual) Moderate Microcytosis Marked Sodium Level 141 136-145 mmol/L Potassium Level 4.0 3.5-5.1 mmol/L Chloride Level 107 98-107 mmol/L Carbon Dioxide Level 24 20-31 mmol/L Anion Gap 10 5-15 Blood Urea Nitrogen 18 9-23 mg/dL Creatinine 0.92 0.550-1.02 mg/dL Glomerular Filtration Rate Calc 62 >90 mL/min BUN/Creatinine Ratio 19.6 10.0-20.0 Serum Glucose 85 74-106 mg/dL Calcium Level 8.7 8.7-10.4 mg/dL Troponin I High Sensitivity 15 </=34 ng/L B-Type Natriuretic Peptide 519.17 0-100 pg/mL POC Glucose 83 70-106 mg/dl PATIENT: TARYN MODI: [id number]: [id number] : 1940 LOC: ER ROOM / BED: / AGE / SEX: 84 / F ADM STATUS: REG ER SERVICE 04 ORDERING PHYSICIAN: DAWIT VILLEDA MD PROCEDURE(s): CXR1 - CHEST XRAY 1 VIEW REASON: Fever ORDER NUMBER(s): [id number], ACCESSION NUMBER(s): [id number] CHEST RADIOGRAPH Indication: Fever Technique: Single frontal view of the chest was obtained Comparison: XY CHEST PORTABLE on DOS: 05/25/24 FINDINGS: Lines and Tubes: None Lungs: Bibasilar airspace disease and pleural effusions right worse than left. Pleura: No effusion. No pneumothorax. Cardiomediastinal contours: Cardiac size is enlarged. Bones: No acute osseous abnormality. IMPRESSION: 1. Bibasilar airspace disease and pleural effusions right worse than left. 2. Cardiomegaly. 3. Probable hiatal hernia in the retrocardiac area. PATIENT: TARYN MODI: [id number] UNIT: [id number] : 1940 LOC: ER ROOM / BED: / AGE / SEX: 84 / F ADM STATUS: REG ER SERVICE 04 ORDERING PHYSICIAN: DAWIT VILLEDA MD PROCEDURE(s): HWOCT - HEAD WITHOUT CONTRAST REASON: Altered Mental status ORDER NUMBER(s): [id number], ACCESSION NUMBER(s): [id number] EXAM: CT HEAD WITHOUT CONTRAST INDICATION: Altered Mental status TECHNIQUE: CT of the head without intravenous contrast. Radiation Dose : 1. Head: CT Dose: CTDI volume is 58 mGy. Dose-length product is 11 70 mGy*cm The dose indicators for CT are the volume Computed Tomography (CT) Dose Index (CTDIvol) and the Dose Length Product (DLP), and are measured in units of mGy and mGy-cm, respectively. These indicators are not patient dose, but values generated from the CT scanner acquisition factors. The report includes radiation exposure data for exposures received during this examination. COMPARISON: CT HEAD WITHOUT CONTRAST on DOS: 05/25/24 FINDINGS: Brain: No acute hemorrhage, mass effect, or cerebral edema. [place] periventricular white matter hypodensity and global parenchymal volume loss. CSF Spaces: Unchanged, moderate enlargement with the left lateral ventricle asymmetrically larger than the right. Small 8 mm subependymal hyperattenuation at the lateral roof of the left lateral ventricle (series 2, image 52/79). Bones/Soft Tissues: No acute fracture. Moderate size left posterior parieto- occipital scalp hematoma. Orbits/Sinuses/Mastoids: Unremarkable as visualized. IMPRESSION: 1. No acute intracranial abnormality. 2. Left posterior scalp hematoma. 3. Asymmetric ventriculomegaly with questionable subcentimeter subependymal deposit of the left lateral ventricle, not appreciably changed from 05/25/2024. Consider outpatient brain MRI with contrast for further assessment. Radiation optimization: All CT scans at this facility use at least one of these dose optimization techniques: automated exposure control mA and/or kV adjustm ent per patient size (includes targeted exams where dose is matched to clinical indication) or iterative reconstruction. Time of 1ST Reevaluation: 20:11 Reevaluation 1ST: Unchanged Patient Education/Counseling: Other (Need for admission) Family Education/Counseling: Other (Need for admission) SEPSIS Sepsis Screen Date sepsis recognized/suspect: Apr 01, 2025 Time Sepsis recognized/suspect: 1907 Recent Procedure: No On Antibiotic Therapy: No Respiratory Rate >20: No Heart Rate >90: No Temp<36 C (96.8 F) or >38.3 C: No SBP <90 or MAP <65 mmHG: No New Acute Mental Status Change: No Is the patient on CPAP, BIPAP,: No Physician Orders Chest Xray 1 View (04/01/25 20:05) Head Without Contrast (04/01/25 20:05) Electrocardigram (04/01/25 20:05) Type And Screen (04/01/25 21:17) Administer Blood Products UD (04/01/25 21:17) Vital Signs Date Time Temp Pulse Resp B/P (MAP) Pulse Ox O2 Delivery O2 Flow Rate FiO2 04/01/25 22:35 98.2 71 16 155/59 (91) 96 98.2 04/01/25 19:05 98.0 88 16 146/89 95 98.0 Laboratory Tests Test 04/01/25 20:18 White Blood Count 5.2 10^3/uL (4.4-10.8) Departure 1 Departure Time of Disposition: 21:40 Impression: Primary Impression: Severe anemia Additional Impressions: Pleural effusion Abnormal CT scan, head Disposition: ADMITTED INPATIENT Condition: Stable Comments MDM: 84-year-old female who presented to the emergency department with altered mental status Found to have hemoglobin 4.2. Blood transfusion initiated in the emergency department Discussed with [place] physician. Authorization # [id number] Extensive evaluation was performed in attempt to identify or rule out: (See differential diagnosis section) The following tests were ordered, and results were reviewed by me and discussed with patient: (See diagnostic results section) The following test were independently interpreted by me: N/A I reviewed and agreed with the following test results read by other providers: N/A I reviewed the following notes from the pt's past medical encounters: N/A Additional information was gathered from interviewing the following independent historians: Patient's daughter at bedside. Discussion of management or test interpretation with external physician/other qualified health regular senior care provider: N/A Addressed an acute or chronic illness that poses a threat to life or bodily function:Severe anemia requiring blood transfusion. Decision regarding hospitalization or escalation of hospital level of care: Risk and benefits of admission for further treatment of patient's condition was considered. Due to patient's current clinical condition, high risk of decline and poor outcome if discharged and need for further inpatient management and monitoring, patient will be admitted to the hospital. Drug therapy requiring intensive monitoring for toxicity: IV PRBCs Critical Care Note Critical Care Time?: No Stability Stability form required: No Heart Score Heart Score: Heart Score Response (Comments) Value History N/A 0 EKG N/A 0 Age N/A 0 Risk Factors N/A 0 Troponin N/A 0 Total 0 I personally scribed for DAWIT VILLEDA MD ([email or web address]) on 04/01/25 at 20:22. Electronically submitted by Nathan Comer ([email or web address]). DAWIT VILLEDA MD Apr 01, 2025 20:22
[2025-04-01 20:30] LABS: Hematocrit 14.7 % (36.0-46.0); Mean Corpuscular Hemoglobin 15.7 pg (28.0-32.0); Mean Corpuscular Volume 55.7 fL (80.0-100.0); Nucleated Red Blood Cells % 1.2 %
[2025-04-01 20:35] LABS: Chloride 107 mmol/L (98-107); Potassium 4.0 mmol/L (3.5-5.1); Sodium 141 mmol/L (136-145)
[2025-04-01 20:36] LABS: Anion Gap 10 (5-15); Calcium 8.7 mg/dL (8.7-10.4); Carbon Dioxide 24 mmol/L (20-31)
[2025-04-01 20:41] LABS: BUN/Creatinine Ratio 19.6 (10.0-20.0); Blood Urea Nitrogen 18 mg/dL (9-23); Glucose 85 mg/dL (74-106)
--- NOTE | 2025-04-01 20:58 | DVH ---
EXAM: CT HEAD WITHOUT CONTRAST INDICATION: Altered Mental status TECHNIQUE: CT of the head without intravenous contrast. Radiation Dose : 1. Head: CT Dose: CTDI volume is 58 mGy. Dose-length product is 11 70 mGy*cm The dose indicators for CT are the volume Computed Tomography (CT) Dose Index (CTDIvol) and the Dose Length Product (DLP), and are measured in units of mGy and mGy-cm, respectively. These indicators are not patient dose, but values generated from the CT scanner acquisition factors. The report includes radiation exposure data for exposures received during this examination. COMPARISON: CT HEAD WITHOUT CONTRAST on DOS: 05/25/24 FINDINGS: Brain: No acute hemorrhage, mass effect, or cerebral edema. [place] periventricular white matter hypodensity and global parenchymal volume loss. CSF Spaces: Unchanged, moderate enlargement with the left lateral ventricle asymmetrically larger than the right. Small 8 mm subependymal hyperattenuation at the lateral roof of the left lateral ventricle (series 2, image 52/79). Bones/Soft Tissues: No acute fracture. Moderate size left posterior parieto- occipital scalp hematoma. Orbits/Sinuses/Mastoids: Unremarkable as visualized. IMPRESSION: 1. No acute intracranial abnormality. 2. Left posterior scalp hematoma. 3. Asymmetric ventriculomegaly with questionable subcentimeter subependymal deposit of the left lateral ventricle, not appreciably changed from 05/25/2024. Consider outpatient brain MRI with contrast for further assessment. Radiation optimization: All CT scans at this facility use at least one of these dose optimization techniques: automated exposure control mA and/or kV adjustment per patient size (includes targeted exams where dose is matched to clinical indication) or iterative reconstruction.
--- NOTE | 2025-04-01 20:59 | DVH ---
CHEST RADIOGRAPH Indication: Fever Technique: Single frontal view of the chest was obtained Comparison: XY CHEST PORTABLE on DOS: 05/25/24 FINDINGS: Lines and Tubes: None Lungs: Bibasilar airspace disease and pleural effusions right worse than left. Pleura: No effusion. No pneumothorax. Cardiomediastinal contours: Cardiac size is enlarged. Bones: No acute osseous abnormality. IMPRESSION: 1. Bibasilar airspace disease and pleural effusions right worse than left. 2. Cardiomegaly. 3. Probable hiatal hernia in the retrocardiac area.
[2025-04-01 21:13] LABS: Hemoglobin 4.2 g/dL (12.2-16.2)
[2025-04-01 22:35] VITALS: RESP 16; O2SAT 95
[2025-04-01 22:39] LABS: Anisocytosis Moderate
[2025-04-02] VITALS (13 sets, daily range): BP systolic 142–191; BP diastolic 69–152; PULSE 63–86; RESP 14–19; TEMP 97.5–98.7; O2SAT 94–100
[2025-04-02] MEDS ORDERED: NITROGLYCERIN 0.4 MG SL TAB SL PRN
[2025-04-02] MEDS ORDERED: MORPHINE SULFATE INJ 2 MG/ml SYRG IV PRN
[2025-04-02] MEDS ORDERED: ACETAMINOPHEN 325 MG TAB PO PRN (00:45)
[2025-04-02] MEDS ORDERED: ONDANSETRON HCL 4 MG/2 ML VIAL IV PRN (00:45)
--- NOTE | 2025-04-02 00:59 | DVHHP2 ---
History of Present Illness Reason for Visit: Generalized weakness History of Present Illness 84-year-old female presents for evaluation of generalized weakness. Patient resides at a [facility]. Patient was noted to be progressively weaker, fatigued and with decreased appetite. There is no reported melena or hematemesis. No blood thinners taken. No complaints of cardiac or respiratory issues. No unilateral weakness or slurred speech. Past Medical History Dementia Past Surgical History None Family History Noncontributory Smoke: No ALCOHOL: none Drugs: None Lives: Other Review of Systems Review of Systems Review of systems are limited due to the patient's dementia. Allergies: Coded Allergies: NO KNOWN ALLERGIES (Unverified , 05/25/24) Medications Current Medications Medications Dose Ordered Sig/Nancy Route Start Time Stop Time Status Last Admin Dose Admin Nitroglycerin 0.4 mg Q5MINP PRN SL 04/02/25 00:00 Morphine Sulfate 2 mg Q30M PRN IV 04/02/25 00:00 Donepezil HCl 10 mg HS PO 04/02/25 22:00 UNV Furosemide 40 mg DAILY PO 04/02/25 10:00 UNV Ondansetron HCl 4 mg Q4HP PRN IV 04/02/25 00:45 UNV Acetaminophen 650 mg Q6HP PRN PO 04/02/25 00:45 UNV Exam Vital Signs Vital Signs Date Time Temp Pulse Resp B/P (MAP) Pulse Ox O2 Delivery O2 Flow Rate FiO2 04/02/25 00:20 98.3 68 14 161/69 98.3 04/01/25 19:05 95 Exam Gen: 84-year-old female in mild distress Skin: Warm, dry, normal color and texture, no rash. HEENT: Normocephalic atraumatic, mucous membranes moist and pink. Neck: Cervical and supraclavicular nodes normal without enlargement, trachea is midline, thyroid gland is normal without masses. Pulmonary: Clear to auscultation and percussion bilaterally. Cardiac: Regular rate and rhythm. No murmur Abdomen: Soft, nontender, nondistended, bowel sounds present all 4 quadrants, no guarding, no rigidity, no organomegaly. Extremities: No cyanosis, clubbing, no edema Neuro: Cranial nerves II through XII grossly intact, normal affect and speech, no focal motor deficits. Labs/Xrays ORDERING PHYSICIAN: DAWIT VILLEDA MD PROCEDURE(s): CXR1 - CHEST XRAY 1 VIEW REASON: Fever ORDER NUMBER(s): [id number], ACCESSION NUMBER(s): [id number] CHEST RADIOGRAPH Indication: Fever Technique: Single frontal view of the chest was obtained Comparison: XY CHEST PORTABLE on DOS: 05/25/24 FINDINGS: Lines and Tubes: None Lungs: Bibasilar airspace disease and pleural effusions right worse than left. Pleura: No effusion. No pneumothorax. Cardiomediastinal contours: Cardiac size is enlarged. Bones: No acute osseous abnormality. IMPRESSION: 1. Bibasilar airspace disease and pleural effusions right worse than left. 2. Cardiomegaly. 3. Probable hiatal hernia in the retrocardiac area. RING PHYSICIAN: DAWIT VILLEDA MD PROCEDURE(s): HWOCT - HEAD WITHOUT CONTRAST REASON: Altered Mental status ORDER NUMBER(s): [id number], ACCESSION NUMBER(s): [id number] EXAM: CT HEAD WITHOUT CONTRAST INDICATION: Altered Mental status TECHNIQUE: CT of the head without intravenous contrast. Radiation Dose : 1. Head: CT Dose: CTDI volume is 58 mGy. Dose-length product is 11 70 mG y*cm The dose indicators for CT are the volume Computed Tomography (CT) Dose Index (CTDIvol) and the Dose Length Product (DLP), and are measured in units of mGy and mGy-cm, respectively. These indicators are not patient dose, but values generated from the CT scanner acquisition factors. The report includes radiation exposure data for exposures received during this examination. COMPARISON: CT HEAD WITHOUT CONTRAST on DOS: 05/25/24 FINDINGS: Brain: No acute hemorrhage, mass effect, or cerebral edema. [place] periventricular white matter hypodensity and global parenchymal volume loss. CSF Spaces: Unchanged, moderate enlargement with the left lateral ventricle asymmetrically larger than the right. Small 8 mm subependymal hyperattenuation at the lateral roof of the left lateral ventricle (series 2, image 52/79). Bones/Soft Tissues: No acute fracture. Moderate size left posterior parieto- occipital scalp hematoma. Orbits/Sinuses/Mastoids: Unremarkable as visualized. IMPRESSION: 1. No acute intracranial abnormality. 2. Left posterior scalp hematoma. 3. Asymmetric ventriculomegaly with questionable subcentimeter subependymal deposit of the left lateral ventricle, not appreciably changed from 05/25/2024. Consider outpatient brain MRI with contrast for further assessment. Radiation optimization: All CT scans at this facility use at least one of these dose optimization techniques: automated exposure control mA and/or kV adjustment per patient size (includes targeted exams where dose is matched to clinical indication) or iterative reconstruction. ATED BY: KATELIN DE JESUS MD DICTATED DATE/TIME: 04/01/252054 Labs Test 04/01/25 23:33 04/01/25 20:18 04/01/25 19:15 Range/Units White Blood Count 5.2 4.4-10.8 10^3/uL Red Blood Count 2.65 L 4.0-5.20 10^6/uL Hemoglobin 4.2 *L 12.2-16.2 g/dL Hematocrit 14.7 L 36.0-46.0 % Mean Corpuscular Volume 55.7 L 80.0-100.0 fL Mean Corpuscular Hemoglobin 15.7 L 28.0-32.0 pg Mean Corpuscular Hemoglobin Concent 28.2 L 32.0-36.0 g/dL Red Cell Distribution Width 18.7 H 11.8-14.3 % Platelet Count 343 140-450 10^3/uL Mean Platelet Volume 8.6 6.9-10.8 fL Neutrophils (%) (Auto) 71.2 37.0-80.0 % Lymphocytes (%) (Auto) 16.0 10.0-50.0 % Monocytes (%) (Auto) 9.6 0.0-12.0 % Eosinophils (%) (Auto) 1.9 0.0-7.0 % Basophils (%) (Auto) 1.3 0.0-2.0 % Neutrophils # (Auto) 3.7 1.6-8.6 10 ^3/uL Lymphocytes # (Auto) 0.8 0.4-5.4 10 ^3/uL Monocytes # (Auto) 0.5 0-1.3 10 ^3/uL Eosinophils # (Auto) 0.1 0-0.8 10 ^3/uL Basophils # (Auto) 0.1 0-0.2 10 ^3/uL Nucleated Red Blood Cells 1.2 % Platelet Estimate Adequate Large Platelets Few Hypochromasia (manual) Marked Poikilocytosis (manual) Slight Anisocytosis (manual) Moderate Microcytosis Marked Sodium Level 141 136-145 mmol/L Potassium Level 4.0 3.5-5.1 mmol/L Chloride Level 107 98-107 mmol/L Carbon Dioxide Level 24 20-31 mmol/L Anion Gap 10 5-15 Blood Urea Nitrogen 18 9-23 mg/dL Creatinine 0.92 0.550-1.02 mg/dL Glomerular Filtration Rate Calc 62 >90 mL/min BUN/Creatinine Ratio 19.6 10.0-20.0 Serum Glucose 85 74-106 mg/dL Calcium Level 8.7 8.7-10.4 mg/dL Troponin I High Sensitivity 15 </=34 ng/L B-Type Natriuretic Peptide 519.17 0-100 pg/mL POC Glucose 83 70-106 mg/dl SEPSIS Sepsis Screen Date sepsis recognized/suspect: Apr 01, 2025 Time Sepsis recognized/suspect: 1907 Recent Procedure: No On Antibiotic Therapy: No Respiratory Rate >20: No Heart Rate >90: No Temp<36 C (96.8 F) or >38.3 C: No SBP <90 or MAP <65 mmHG: No New Acute Mental Status Change: No Is the patient on CPAP, BIPAP,: No Physician Orders Rapid Influenza A&B (04/01/25 20:05) Covid19 Antigen Natasha (04/01/25 ) Chest Xray 1 View (04/01/25 20:05) Head Without Contrast (04/01/25 20:05) Electrocardigram (04/01/25 20:05) Administer Blood Products UD (04/01/25 21:17) Admit (04/01/25 23:55) Nitroglycerin Sublingual (Ntrostat Subli (04/02/25 00:00) Morphine Sulfate Injection (04/02/25 00:00) Stat Ekg For Chest Pain (04/01/25 23:55) Notify Md Of Changes From Base (04/01/25 23:55) Ship Loader For 24 Hours (04/01/25 23:55) Emergency Dysrhythmia Protocol (04/01/25 23:55) Rhythm Strips Once Every Shift (04/01/25 23:55) Oxygen By Nasal Cannula (04/01/25 23:55) Urinalysis (04/02/25 00:44) Rapid Influenza A&B (04/02/25 00:44) Donepezil Tablet (Aricept Tablet) (04/02/25 22:00) Stool Occult Blood (04/02/25 00:44) * Gi Dvh Roof Truss Detailer (04/02/25 00:44) Furosemide Tablet (Lasix Tablet) (04/02/25 10:00) Furosemide Injection (Lasix Injection) (04/02/25 00:45) Echo 2d Mode Cardiac Dop (04/02/25 00:44) Ondansetron Hcl (Zofran) (04/02/25 00:45) Complete Blood Count (04/03/25 04:00) Comprehensive Metabolic Panel (04/03/25 04:00) Cardiac Diet-2gna,Lofat,Lochol (04/02/25 Breakfast) Condition: Fair (04/02/25 00:44) Acetaminophen Tablet (Tylenol Tablet) (04/02/25 00:45) Bedside Commode (04/02/25 00:44) Maintain Bed Rest (04/02/25 00:44) Sequential Compression Device (04/02/25 ) Vital Signs Date Time Temp Pulse Resp B/P (MAP) Pulse Ox O2 Delivery O2 Flow Rate FiO2 04/02/25 00:20 98.3 68 14 161/69 98.3 04/01/25 19:05 98.0 88 16 146/89 95 98.0 Laboratory Tests Test 04/01/25 20:18 White Blood Count 5.2 10^3/uL (4.4-10.8) Assessment/Plan Assessment/Plan Assessment Symptomatic anemia Cardiomegaly Pleural effusions dementia Plan Admit the patient to telemetry to the hospitalist Transfuse three PRBCs 20 mg of IV Lasix after 2nd unit of PRBC Resume home medications GI consultation Continue treatment per orders. Plan discussed with: Son My Orders Orders - MARYCRUZ JOYCE AGACNP Procedure Category Date Status Time Admit ADMIT 04/01/25 Transmitted 23:55 Nitroglycerin PHA 04/02/25 In Process Sublingual (Ntrostat 00:00 Morphine Sulfate PHA 04/02/25 In Process Injection 00:00 Stat Ekg For Chest [facility] 04/01/25 In Process Pain 23:55 Notify Of Changes [facility] 04/01/25 In Process From Base 23:55 Ship Loader For [facility] 04/01/25 In Process 24 Hours 23:55 Emergency Dysrhythmia [facility] 04/01/25 In Process Protocol 23:55 Rhythm Strips Once [facility] 04/01/25 In Process Every Shift 23:55 Oxygen By Nasal RT 04/01/25 Transmitted Cannula 23:55 Urinalysis LAB 04/02/25 Logged 00:44 Rapid Influenza A&B LAB 04/02/25 Logged 00:44 Donepezil Tablet PHA 04/02/25 Logged (Aricept Tablet) 22:00 Stool Occult Blood LAB 04/02/25 Logged 00:44 * Gi Dvh Roof Truss Detailer CONS 04/02/25 Transmitted 00:44 Furosemide Tablet PHA 04/02/25 Logged (Lasix Tablet) 10:00 Furosemide Injection PHA 04/02/25 Logged (Lasix Injection) 00:45 Echo 2d Mode Cardiac US 04/02/25 Logged DOP 00:44 Ondansetron Hcl PHA 04/02/25 Logged (Zofran) 00:45 Complete Blood Count LAB 04/03/25 Verified 04:00 Comprehensive LAB 04/03/25 Verified Metabolic Panel 04:00 Cardiac DIET 04/02/25 Transmitted Diet-2gna,Lofat,Lochol Breakfast Condition: Fair [facility] 04/02/25 In Process 00:44 Acetaminophen Tablet PHA 04/02/25 Logged (Tylenol Tablet) 00:45 Bedside Commode [facility] 04/02/25 In Process 00:44 Maintain Bed Rest [facility] 04/02/25 In Process 00:44 Sequential [facility] 04/02/25 In Process Compression Device Date of Service: Apr 01, 2025 Billing Provider: MARYCRUZ JOYCE Common Visit Codes: [id number] INP/OBS CARE (HIGH) MARYCRUZ JOYCE Apr 02, 2025 00:59
[2025-04-02 01:06] LABS: COVID19 ANTIGEN SOFIA FIA NEGATIVE (NEGATIVE)
[2025-04-02] MEDS: FUROSEMIDE 20 MG/2 ML VIAL IV ONE (07:17)
[2025-04-02] MEDS: PANTOPRAZOLE 40 MG/10 ML VIAL INJ IV ONE (12:15)
--- NOTE | 2025-04-02 12:17 | DVHPN2 ---
Progress Note Date Seen: Apr 02, 2025 Medical Necessity Reason Pt with a Central, PICC or Fol: No Subjective Patient reports: No new complaints Review of Systems: HEENT:Normal, CVS:Normal, RESPIRATORY:Normal, GI:Normal, :Normal, MSK:Normal, NEURO:Normal Objective vital signs Vital Sign Date Time Temp Pulse Resp B/P (MAP) Pulse Ox O2 Delivery O2 Flow Rate FiO2 04/02/25 12:00 61 04/02/25 10:05 97.6 19 191/84 97.6 04/02/25 05:00 98 04/01/25 22:35 Room Air* 0 21 Total Intake and Output 04/01/25 04/01/25 04/02/25 15:00 23:00 07:00 Intake Total 900 ml Output Total 0 ml Balance 900 ml medications Current Medications Medications Dose Ordered Sig/Nancy Route Start Time Stop Time Status Last Admin Dose Admin Nitroglycerin 0.4 mg Q5MINP PRN SL 04/02/25 00:00 Morphine Sulfate 2 mg Q30M PRN IV 04/02/25 00:00 Donepezil HCl 10 mg HS PO 04/02/25 22:00 Furosemide 40 mg DAILY PO 04/03/25 10:00 Ondansetron HCl 4 mg Q4HP PRN IV 04/02/25 00:45 Acetaminophen 650 mg Q6HP PRN PO 04/02/25 00:45 Examination: GENERAL:Normal, HEENT:Normal, NECK:Normal, LUNGS:Normal, CVS:Normal, ABDOMEN:Normal, MSK:Normal, SKIN:Normal, NEURO:Normal, :Normal laboratory and microbiology Laboratory Tests 04/01/25 20:18 Test 04/01/25 20:18 Range/Units Serum Glucose 85 74-106 mg/dL Problem List/Assessment/Plan Problem List/Assessment/Plan #1 severe anemia: transfuse, gi eval, ct abdomen, iron panel, ppi #2 dementia #3 vit b 12 def: check level #4 ? acute systolic/diastolic heart failure: lasix advance care planning- full code for now- son will clarify with his sister- time spent 21 mins Plan discussed with: Patient, Son My Orders My Orders Orders - MARYCRUZ PADILLA MD Procedure Category Date Status Time Complete Blood Count LAB 04/02/25 Transmitted 13:00 Pantoprazole PHA 04/02/25 Transmitted (Protonix) 12:15 Pantoprazole PHA 04/03/25 Transmitted (Protonix) 10:00 Urinalysis LAB 04/02/25 Uncollected 12:10 Complete Blood Count LAB 04/03/25 Verified 06:00 Comprehensive LAB 04/03/25 Verified Metabolic Panel 06:00 PTPTT LAB 04/03/25 Verified 04:00 Iron Panel LAB 04/02/25 Transmitted 12:10 Date of Service: Apr 02, 2025 Billing Provider: MARYCRUZ PADILLA MD Common Visit Codes: [id number] INP/OBS CARE(HIGH) Secondary Visit Codes: [id number] CARE PLAN 30 MINUTES CC Plasma Assessment Blood Product Administration S: [id number] MARYCRUZ PADILLA MD Apr 02, 2025 12:17
[2025-04-02 13:54] LABS: Hemoglobin 9.1 g/dL (12.2-16.2)
--- NOTE | 2025-04-02 13:55 | DVH ---
Indication: ABD PAIN Technique: CT axial images of the abdomen and pelvis are obtained without contrast. Coronal and sagittal reformats were obtained. Radiation Dose Information: CTDI volume is 16.49 mGy. Dose-length product is 775.67 mGy*cm Comparison: None FINDINGS: There is limited interpretation of the abdomen and pelvis without administration of intravenous contrast. Small to moderate right and small left pleural effusions. Small pericardial effusion. Bibasilar pulmonary atelectasis / consolidation. Adrenal glands, spleen, pancreas unremarkable in shape. No CT evidence for cholelithiasis. Dilated common bile duct measuring 20 mm. Liver unremarkable in shape. The kidneys demonstrate no hydronephrosis/nephrolithiasis. Moderate size hiatal hernia. Small bowel loops are normal in caliber. Moderate volume stool in the colon. No secondary signs for appendicitis. Abdominal aortic atherosclerotic disease and tortuosity. Bladder decompressed by Grullon catheter no free pelvic fluid. No inguinal lymphadenopathy. Right gluteal region fluid collection measuring 4.2 x 7.1 cm. Old bilateral superior/ inferior pubic rami fractures. Moderate to advanced thoracolumbar degenerative disc disease. 6 mm anterolisthesis L4 upon L5. Chronic appearing compression deformities at T12, L1. IMPRESSION: Limited evaluation without contrast. Dilated common bile duct measuring 20 mm. Recommend GI consultation and MRCP to further evaluate. Small to moderate right and small left pleural effusions. Bibasilar pulmonary atelectasis /consolidation. Moderate size hiatal hernia. Moderate volume stool in the colon. Right gluteal region fluid collection measuring 4.2 x 7.1 cm, indeterminate. Correlate clinically. Chronic appearing T12 and L1 compression deformities. If there is concern for acute fracture recommend obtaining MRI thoracic/lumbar spine to evaluate. Other findings as described
[2025-04-02 13:56] LABS: Hematocrit 29.2 % (36.0-46.0); Mean Corpuscular Hemoglobin 20.4 pg (28.0-32.0); Mean Corpuscular Volume 65.9 fL (80.0-100.0); Nucleated Red Blood Cells % 1.8 %
[2025-04-02 14:16] LABS: Iron 50.0 ug/dL (50-170)
[2025-04-02 14:19] LABS: Total Iron Binding Capacity 413.0 ug/dL (250-425)
[2025-04-02 14:34] LABS: Anisocytosis Moderate
[2025-04-02 14:36] LABS: Ovalocytes FEW
[2025-04-02 14:37] LABS: Tear Drop Cells FEW
[2025-04-02 14:56] LABS: Alanine Aminotransferase 18.0 U/L (7-40); Albumin 3.9 g/dL (3.2-4.8); Total Protein 6.4 g/dL (5.7-8.2)
[2025-04-02 14:57] LABS: Bilirubin, Direct 0.3 mg/dL (<0.3); Bilirubin, Total 0.9 mg/dL (0.2-1.0)
[2025-04-02 15:07] LABS: Alkaline Phosphatase 127.0 U/L (46-116)
--- NOTE | 2025-04-02 15:47 | DVHCONRES ---
Date Seen: Apr 02, 2025 Resident Creating Document: ELVIRA GABRIEL RESIDENT History of Present Illness 84-year-old female presents for evaluation of generalized weakness. Patient resides at a [facility] facility. Patient was noted to be progressively weaker, fatigued and with decreased appetite. There is no reported melena or hematemesis. No blood thinners taken. No complaints of cardiac or respiratory issues. No unilateral weakness or slurred speech. Per son, patient never had blood in her stool. Denies taking aspirin or ibuprofen. Per son, patient has chronic anemia Past Medical History Dementia, history of hemorrhoids Past Surgical History None Patient seen and examined in ER. Blood pressure 174/77 mmHg. No abdominal tenderness. Family History: Patient reports no known family medical history. Allergies: Coded Allergies: NO KNOWN ALLERGIES (Unverified , 05/25/24) Home Meds Active Scripts Cyanocobalamin (Vitamin B12) 500 Mcg Tab, 500 MCG PO DAILY for 30 Days, #30 TAB 3 Refills Prov:MARYCRUZ PADILLA MD 05/29/24 Reported Medications Ferrous Sulfate (Iron (Ferrous Sulfate)) 50 Mg Tab, PO EOD, TAB 05/27/24 Sertraline HCl (Sertraline HCl) 50 Mg Tab, 10 MG PO DAILY 05/27/24 Donepezil Hydrochloride (Donepezil Hydrochloride) 10 Mg Tab, 1 TAB PO DAILY 05/26/24 Current Medications Current Medications Medications (Trade) Dose Ordered Sig/Nancy Route PRN Reason Start Time Stop Time Status Last Admin Nitroglycerin (Ntrostat Sublingual) 0.4 mg Q5MINP PRN SL FOR CHEST PAIN 04/02/25 00:00 Morphine Sulfate 2 mg Q30M PRN IV FOR CHEST PAIN 04/02/25 00:00 Donepezil HCl (Aricept Tablet) 10 mg HS PO 04/02/25 22:00 Furosemide (Lasix Tablet) 40 mg DAILY PO 04/03/25 10:00 Ondansetron HCl (Zofran) 4 mg Q4HP PRN IV NAUSEA / VOMITING 04/02/25 00:45 Acetaminophen (Tylenol Tablet) 650 mg Q6HP PRN PO PAIN SCALE 1-3 OR TEMP>100.4 04/02/25 00:45 Pantoprazole Sodium (Protonix) 40 mg DAILY IV 04/03/25 10:00 Hydralazine HCl (Apresoline Injection) 10 mg Q6HR IV 04/02/25 18:00 UNV Hydralazine HCl (Apresoline Injection) 10 mg Q6HR PRN IV SBP>150 04/02/25 14:30 Vital Signs Vital Signs Date Time Temp Pulse Resp B/P (MAP) Pulse Ox O2 Delivery O2 Flow Rate FiO2 04/02/25 12:00 61 04/02/25 10:05 97.6 19 191/84 97.6 04/02/25 05:00 98 04/01/25 22:35 Room Air* 0 21 Physical Exam Elderly frail patient lying in the bed comfortably, no acute distress General: Elderly, afebrile, palor, mucosae are moist Cardiovascular: Regular S1 and S2. No murmurs, gallops or rubs. No JVD elevation. No pedal edema Respiratory: Normal B/L air entry on room air. Clear lung sounds on auscultation Abdomen: Soft, nontender, nondistended, normoactive bowel sounds, no rebound tenderness, no organomegaly, no masses Genitourinary: Deferred MSK/skin: Mobilizes 4 limbs. Skin is dry and warm Labs/Diagnostic Data Labs Test 04/02/25 13:18 04/01/25 23:33 04/01/25 20:18 04/01/25 19:15 Range/Units White Blood Count 6.6 # 4.4-10.8 10^3/uL Red Blood Count 4.43 4.0-5.20 10^6/uL Hemoglobin 9.1 #L 12.2-16.2 g/dL Hematocrit 29.2 #L 36.0-46.0 % Mean Corpuscular Volume 65.9 #L 80.0-100.0 fL Mean Corpuscular Hemoglobin 20.4 L 28.0-32.0 pg Mean Corpuscular Hemoglobin Concent 31.0 L 32.0-36.0 g/dL Red Cell Distribution Width 27.6 H 11.8-14.3 % Platelet Count 272 140-450 10^3/uL Mean Platelet Volume 8.5 6.9-10.8 fL Neutrophils (%) (Auto) 80.2 H 37.0-80.0 % Lymphocytes (%) (Auto) 6.6 L 10.0-50.0 % Monocytes (%) (Auto) 9.9 0.0-12.0 % Eosinophils (%) (Auto) 1.9 0.0-7.0 % Basophils (%) (Auto) 1.4 0.0-2.0 % Neutrophils # (Auto) 5.3 1.6-8.6 10 ^3/uL Lymphocytes # (Auto) 0.4 0.4-5.4 10 ^3/uL Monocytes # (Auto) 0.6 0-1.3 10 ^3/uL Eosinophils # (Auto) 0.1 0-0.8 10 ^3/uL Basophils # (Auto) 0.1 0-0.2 10 ^3/uL Nucleated Red Blood Cells 1.8 % Platelet Estimate [place] Large Platelets Few Hypochromasia (manual) Marked Poikilocytosis (manual) Slight Anisocytosis (manual) Moderate Microcytosis Marked Tear Drop Cells Few Ovalocytes Few Tobi Cells Few Iron Level 50 50-170 ug/dL Total Iron Binding Capacity 413 250-425 ug/dL Percent Iron Saturation 12.1 L 15-50 % Total Bilirubin 0.9 0.2-1.0 mg/dL Direct Bilirubin 0.3 <0.3 mg/dL Aspartate Amino Transferase (AST) 26 13-40 U/L Alanine Aminotransferase (ALT) 18 7-40 U/L Alkaline Phosphatase 127 H 46-116 U/L Total Protein 6.4 5.7-8.2 g/dL Albumin 3.9 3.2-4.8 g/dL Vitamin B12 Level > 4000 H 211-911 pg/mL Folic Acid 8.33 >5.38 ng/mL Influenza Type A Antigen Negative Negative Influenza Type B Antigen Negative Negative SARS-CoV-2 Antigen (Rapid) Negative NEGATIVE Sodium Level 141 136-145 mmol/L Potassium Level 4.0 3.5-5.1 mmol/L Chloride Level 107 98-107 mmol/L Carbon Dioxide Level 24 20-31 mmol/L Anion Gap 10 5-15 Blood Urea Nitrogen 18 9-23 mg/dL Creatinine 0.92 0.550-1.02 mg/dL Glomerular Filtration Rate Calc 62 >90 mL/min BUN/Creatinine Ratio 19.6 10.0-20.0 Serum Glucose 85 74-106 mg/dL Calcium Level 8.7 8.7-10.4 mg/dL Troponin I High Sensitivity 15 </=34 ng/L B-Type Natriuretic Peptide 519.17 0-100 pg/mL POC Glucose 83 70-106 mg/dl Assessment Chronic anemia likely microcytic Iron-deficiency anemia Uncontrolled hypertension Moderate size hiatal hernia ? Right gluteal region fluid collection History of hemorrhoids Dementia Pleural effusions CT abdomen shows dilated CBD measuring 20 mm. Small to moderate right and small left pleural effusion. Moderate-sized hiatal hernia. Moderate volume is within the colon. Right gluteal region fluid collection measuring 4.2 x 7.1 cm, indeterminate. Plan: Dr. Woodson: Given that the patient had scopes recently, and that the anemia is chronic. We recommend medical management at this time. Follow up with the stool occult. LFTs unremarkable, Iron panel consistent with iron-deficiency anemia, follow up with ferritin, IV iron 1 dose today Transfuse to keep hemoglobin greater than 7. Continue Protonix 40 mg IV daily Follow up with CT abdomen results Continue pureed diet Plan discussed with the patient's son in which all questions have been answered Case discussed with Dr. Woodson Plan discussed with: Son, Other ELVIRA GABRIEL RESIDENT Apr 02, 2025 15:47
--- NOTE | 2025-04-02 17:42 | DVHSR ---
APPROVED REPORT EXAM: Two-dimensional and M-mode echocardiogram with Doppler and color Doppler. INDICATION EF RISK FACTORS Height: 62, Weight: 155 DIMENSIONS LVDd 4.8 (3.8-5.7cm) LA (2D) 4.4 (1.9-4.0cm) Aortic Root 2.9 (2.0-3.7cm) LVDs 3.2 (2.5-4.0cm) LA (MM) (1.9-4.0cm) Aortic Cusp Exc 1.4 (1.5-2.0cm) EF (%) 63.0 (55-70%) Rt. Atrium (1.9-4.0cm) Asc. Aorta 3.2 cm IVSd 1.0 (0.7-1.1cm) RV (D) (1.8-2.4cm) PWd 1.2 (0.7-1.1cm) Mitral Valve Mitral Mitral Stenosis E wave 1.40m/s MV Mean GR. mmHg A wave 1.53m/s MV Peak GR. 126mmHg E/A ratio 0.9 2D MVA cm2 DECEL Time 170ms PRESS 1/2 Time ms Aortic Valve Aortic Valve Aortic Stenosis V1 1.06m/s AO Mean GR. 4mmHg V2 1.32m/s AO Peak GR. 7mmHg LVOT Diameter 1.8 (1.8-2.4cm) Doppler HILARY 2.04cm2 Pulmonic Valve V2 1.12m/s Tricuspid Valve TR Velocity 3.13m/s RVSP 47mmHg Other Information Quality : Technically Limited Rhythm : Technically limited study due to patient position and non-compliance. Conclusion Sinus rhythm. Concentric LVH with left atrial enlargement. Thickening of the posterior mitral leaflet with calcification at the junction of the leaflet with the papillary muscle. Left ventricular systolic function appears preserved. EF of about 50% with normal RV function. There is moderate mitral insufficiency. Moderate pulmonic insufficiency. No pericardial effusion masses or vegetations.
[2025-04-02] MEDS ORDERED: hydrALAZINE HCL 20 MG/ML VL IV SCH (18:00)
[2025-04-02] MEDS: DONEPEZIL HYDROCHLORIDE 5 MG TAB PO SCH (21:32)
[2025-04-03] VITALS (9 sets, daily range): BP systolic 124–160; BP diastolic 62–83; PULSE 54–76; RESP 17–20; TEMP 97.4–97.9; O2SAT 96–97
[2025-04-03] MEDS: hydrALAZINE HCL 20 MG/ML VL IV PRN (05:14)
[2025-04-03 06:44] LABS: Hemoglobin 8.7 g/dL (12.2-16.2); Mean Corpuscular Hemoglobin 20.7 pg (28.0-32.0)
[2025-04-03 06:48] LABS: INR 1.02 (0.9-1.15); Partial Thromboplastin Time 29.1 SEC (24.5-34.5); Prothrombin Time 10.8 sec (9.3-11.8)
[2025-04-03 06:51] LABS: Hematocrit 27.6 % (36.0-46.0); Mean Corpuscular Volume 65.8 fL (80.0-100.0); Nucleated Red Blood Cells % 1.1 %
[2025-04-03 06:59] LABS: Alanine Aminotransferase 13 U/L (7-40); Alkaline Phosphatase 106 U/L (46-116); Anion Gap 9 (5-15); BUN/Creatinine Ratio 21.1 (10.0-20.0); Blood Urea Nitrogen 15 mg/dL (9-23); Carbon Dioxide 22 mmol/L (20-31); Chloride 105 mmol/L (98-107); Glucose 75 mg/dL (74-106); Sodium 136 mmol/L (136-145)
[2025-04-03 07:00] LABS: Total Protein 5.8 g/dL (5.7-8.2)
[2025-04-03 07:01] LABS: Albumin 3.4 g/dL (3.2-4.8); Bilirubin, Total 0.6 mg/dL (0.2-1.0)
[2025-04-03 07:07] LABS: Calcium 8.3 mg/dL (8.7-10.4); Potassium 3.5 mmol/L (3.5-5.1)
[2025-04-03 07:46] LABS: Urine Protein, UAD 2+ (Negative)
[2025-04-03 08:28] LABS: Anisocytosis Moderate; Ovalocytes FEW
[2025-04-03] MEDS: FUROSEMIDE 40 MG TAB PO SCH (10:10)
[2025-04-03] MEDS: PANTOPRAZOLE 40 MG/10 ML VIAL INJ IV SCH (10:10)
--- NOTE | 2025-04-03 12:14 | DVHPN2 ---
Progress Note Date Seen: Apr 03, 2025 Resident Creating Document: ELVIRA GABRIEL RESIDENT Medical Necessity Reason Pt with a Central, PICC or Fol: No Subjective Review of Systems 84-year-old female presents for evaluation of generalized weakness. Patient resides at a [facility] facility. Patient was noted to be progressively weaker, fatigued and with decreased appetite. There is no reported melena or hematemesis. No blood thinners taken. No complaints of cardiac or respiratory issues. No unilateral weakness or slurred speech. Per son, patient never had blood in her stool. Denies taking aspirin or ibuprofen. Per son, patient has chronic anemia Past Medical History Dementia, history of hemorrhoids Past Surgical History None 04/02-Patient seen and examined in ER. Blood pressure 174/77 mmHg. No abdominal tenderness. 04/03-patient seen and examined. No symptoms reported. Objective vital signs Vital Sign Date Time Temp Pulse Resp B/P (MAP) Pulse Ox O2 Delivery O2 Flow Rate FiO2 04/03/25 10:10 128/76 04/03/25 08:30 97.7 76 20 96 97.7 04/03/25 07:30 Room Air* 0 21 Total Intake and Output 04/02/25 04/02/25 04/03/25 15:00 23:00 07:00 Intake Total 1800 ml 300 ml Output Total 0 ml 750 ml Balance 1800 ml -450 ml medications Current Medications Medications Dose Ordered Sig/Nancy Route Start Time Stop Time Status Last Admin Dose Admin Nitroglycerin 0.4 mg Q5MINP PRN SL 04/02/25 00:00 Morphine Sulfate 2 mg Q30M PRN IV 04/02/25 00:00 Donepezil HCl 10 mg HS PO 04/02/25 22:00 04/02/25 21:32 10 MG Furosemide 40 mg DAILY PO 04/03/25 10:00 04/03/25 10:10 40 MG Ondansetron HCl 4 mg Q4HP PRN IV 04/02/25 00:45 Acetaminophen 650 mg Q6HP PRN PO 04/02/25 00:45 Pantoprazole Sodium 40 mg DAILY IV 04/03/25 10:00 04/03/25 10:10 40 MG Hydralazine HCl 10 mg Q6HR IV 04/02/25 18:00 UNV Hydralazine HCl 10 mg Q6HR PRN IV 04/02/25 14:30 04/03/25 05:14 10 MG Examination Elderly frail patient lying in the bed comfortably, no acute distress General: Elderly, afebrile, palor, mucosae are moist Cardiovascular: Regular S1 and S2. No murmurs, gallops or rubs. No JVD elevation. No pedal edema Respiratory: Normal B/L air entry on room air. Clear lung sounds on auscultation Abdomen: Soft, nontender, nondistended, normoactive bowel sounds, no rebound tenderness, no organomegaly, no masses Genitourinary: Deferred MSK/skin: Mobilizes 4 limbs. Skin is dry and warm laboratory and microbiology Laboratory Tests 04/03/25 05:51 Test 04/03/25 05:51 Range/Units Serum Glucose 75 74-106 mg/dL Labs and/or images reviewed: Labs reviewed by me, Image(s) reviewed by me Problem List/Assessment/Plan Problem List/Assessment/Plan Chronic anemia likely microcytic Iron-deficiency anemia Uncontrolled hypertension Moderate size hiatal hernia ? Right gluteal region fluid collection History of hemorrhoids Dementia Pleural effusions CT abdomen shows dilated CBD measuring 20 mm. Small to moderate right and small left pleural effusion. Moderate-sized hiatal hernia. Moderate volume is within the colon. Right gluteal region fluid collection measuring 4.2 x 7.1 cm, indeterminate. Plan: Dr. Woodson: Given that the patient had scopes recently at [place] facility, and that per the son, the anemia is chronic. We recommend medical management at this time. Follow up with the stool occult. Follow up outpatient with [place]. LFTs unremarkable, H&H stable. Iron panel consistent with iron-deficiency anemia, follow up with ferritin, IV iron 1 dose today Transfuse to keep hemoglobin greater than 7. Continue Protonix 40 mg IV daily Follow up with CT abdomen results Continue pureed diet Plan discussed with the patient's son in which all questions have been answered Case discussed with Dr. Woodson Plan discussed with: Son My Orders My Orders Orders - ELVIRA GABRIEL Procedure Category Date Status Time Iron Sucrose Complex PHA 04/03/25 In Process (Venofer) 12:00 CC Plasma Assessment Blood Product Administration S: [id number] ELVIRA GABRIEL Apr 03, 2025 12:13
[2025-04-03] MEDS: IRON SUCROSE COMPLEX 110 ML IV ONE (12:21)
--- NOTE | 2025-04-03 15:52 | DVHPN2 ---
Progress Note Date Seen: Apr 03, 2025 Medical Necessity Reason Pt with a Central, PICC or Fol: No Subjective Patient reports: No new complaints Review of Systems: HEENT:Normal, CVS:Normal, RESPIRATORY:Normal, GI:Normal, :Normal, MSK:Normal, NEURO:Normal Objective vital signs Vital Sign Date Time Temp Pulse Resp B/P (MAP) Pulse Ox O2 Delivery O2 Flow Rate FiO2 04/03/25 12:39 97.9 58 17 146/75 (98) 97 97.9 04/03/25 07:30 Room Air* 0 21 Total Intake and Output 04/02/25 04/02/25 04/03/25 15:00 23:00 07:00 Intake Total 1800 ml 300 ml Output Total 0 ml 750 ml Balance 1800 ml -450 ml medications Current Medications Medications Dose Ordered Sig/Nancy Route Start Time Stop Time Status Last Admin Dose Admin Nitroglycerin 0.4 mg Q5MINP PRN SL 04/02/25 00:00 Morphine Sulfate 2 mg Q30M PRN IV 04/02/25 00:00 Donepezil HCl 10 mg HS PO 04/02/25 22:00 04/02/25 21:32 10 MG Furosemide 40 mg DAILY PO 04/03/25 10:00 04/03/25 10:10 40 MG Ondansetron HCl 4 mg Q4HP PRN IV 04/02/25 00:45 Acetaminophen 650 mg Q6HP PRN PO 04/02/25 00:45 Pantoprazole Sodium 40 mg DAILY IV 04/03/25 10:00 04/03/25 10:10 40 MG Hydralazine HCl 10 mg Q6HR IV 04/02/25 18:00 UNV Hydralazine HCl 10 mg Q6HR PRN IV 04/02/25 14:30 04/03/25 05:14 10 MG Examination: GENERAL:Normal, HEENT:Normal, NECK:Normal, LUNGS:Normal, CVS:Normal, ABDOMEN:Normal, MSK:Normal, SKIN:Normal, NEURO:Normal, :Normal laboratory and microbiology Laboratory Tests 04/03/25 05:51 Test 04/03/25 05:51 Range/Units Serum Glucose 75 74-106 mg/dL Problem List/Assessment/Plan Problem List/Assessment/Plan #1 severe anemia: transfuse, gi eval, ct abdomen, iron panel, ppi #2 dementia #3 vit b 12 def: check level #4 acute systolic/diastolic heart failure: lasix iv #5 s/p fall/scalp hematoma advance care planning- dnr per son [facility]- time spent 21 mins Plan discussed with: Patient, Son My Orders My Orders Orders - MARYCRUZ PADILLA MD Procedure Category Date Status Time * Sales Force Administrator CONS 04/03/25 Verified Consult Furosemide Injection PHA 04/03/25 Verified (Lasix Injection) 16:00 Potassium Er Tablet PHA 04/03/25 Verified (Klor-Con Tablet) 16:00 Basic Metabolic Panel LAB 04/04/25 Verified 06:00 Magnesium LAB 04/04/25 Verified 05:00 Complete Blood Count LAB 04/04/25 Verified 06:00 Pt Request For Service PT 04/03/25 Verified 15:49 Date of Service: Apr 03, 2025 Billing Provider: MARYCRUZ PADILLA MD Common Visit Codes: [id number] INP/OBS CARE(HIGH) Secondary Visit Codes: [id number] CARE PLAN 30 MINUTES CC Plasma Assessment Blood Product Administration S: [id number] MARYCRUZ PADILLA MD Apr 03, 2025 15:52
[2025-04-03] MEDS ORDERED: POTASSIUM CHL 20 Meq TABLET PO ONE (16:00)
[2025-04-03] MEDS: FUROSEMIDE 20 MG/2 ML VIAL IV ONE (17:18)
[2025-04-03] MEDS: POTASSIUM EFFERVESENT TAB 25 MEQ PO ONE (17:19)
[2025-04-04] VITALS (8 sets, daily range): BP systolic 124–149; BP diastolic 72–102; PULSE 57–83; RESP 17–18; TEMP 97.3–98.8; O2SAT 95–98
[2025-04-04 06:07] LABS: Nucleated Red Blood Cells % 0.9 %
[2025-04-04 06:11] LABS: Hematocrit 27.1 % (36.0-46.0); Hemoglobin 8.6 g/dL (12.2-16.2); Mean Corpuscular Hemoglobin 21.0 pg (28.0-32.0); Mean Corpuscular Volume 66.0 fL (80.0-100.0)
[2025-04-04 06:23] LABS: Chloride 100 mmol/L (98-107)
[2025-04-04 06:24] LABS: Anion Gap 9 (5-15); Carbon Dioxide 24 mmol/L (20-31)
[2025-04-04 06:30] LABS: BUN/Creatinine Ratio 17.0 (10.0-20.0); Blood Urea Nitrogen 15 mg/dL (9-23); Glucose 86 mg/dL (74-106); Magnesium 1.9 mg/dL (1.6-2.6)
[2025-04-04 06:37] LABS: Calcium 8.5 mg/dL (8.7-10.4); Potassium 3.5 mmol/L (3.5-5.1); Sodium 133 mmol/L (136-145)
[2025-04-04 09:10] LABS: Anisocytosis Moderate
[2025-04-04 09:11] LABS: Ovalocytes FEW
--- NOTE | 2025-04-04 14:40 | DVHPN2 ---
Progress Note Date Seen: Apr 04, 2025 Resident Creating Document: ELVIRA GABRIEL RESIDENT Medical Necessity Reason Pt with a Central, PICC or Fol: No Subjective Review of Systems 84-year-old female presents for evaluation of generalized weakness. Patient resides at a [facility] and [facility] facility. Patient was noted to be progressively weaker, fatigued and with decreased appetite. There is no reported melena or hematemesis. No blood thinners taken. No complaints of cardiac or respiratory issues. No unilateral weakness or slurred speech. Per son, patient never had blood in her stool. Denies taking aspirin or ibuprofen. Per son, patient has chronic anemia Past Medical History Dementia, history of hemorrhoids Past Surgical History None 04/02-Patient seen and examined in ER. Blood pressure 174/77 mmHg. No abdominal tenderness. 04/03-patient seen and examined. No symptoms reported. 04/04-patient is sleepy, unable to sleep overnight, per son, patient is altered. Ammonia level ordered. Objective vital signs Vital Sign Date Time Temp Pulse Resp B/P (MAP) Pulse Ox O2 Delivery O2 Flow Rate FiO2 04/04/25 13:00 98.8 62 18 124/102 (109) 96 98.8 04/03/25 20:00 Room Air* 0 21 Total Intake and Output 04/03/25 04/03/25 04/04/25 15:00 23:00 07:00 Intake Total 110 ml 480 ml 400 ml Output Total 800 ml 1600 ml Balance 110 ml -320 ml -1200 ml medications Current Medications Medications Dose Ordered Sig/Nancy Route Start Time Stop Time Status Last Admin Dose Admin Nitroglycerin 0.4 mg Q5MINP PRN SL 04/02/25 00:00 Morphine Sulfate 2 mg Q30M PRN IV 04/02/25 00:00 Donepezil HCl 10 mg HS PO 04/02/25 22:00 04/03/25 21:10 10 MG Furosemide 40 mg DAILY PO 04/03/25 10:00 04/04/25 10:33 40 MG Ondansetron HCl 4 mg Q4HP PRN IV 04/02/25 00:45 Acetaminophen 650 mg Q6HP PRN PO 04/02/25 00:45 Pantoprazole Sodium 40 mg DAILY IV 04/03/25 10:00 04/04/25 10:33 40 MG Hydralazine HCl 10 mg Q6HR IV 04/02/25 18:00 UNV Hydralazine HCl 10 mg Q6HR PRN IV 04/02/25 14:30 04/03/25 05:14 10 MG Folic Acid 1 mg DAILY PO 04/04/25 14:15 Examination Elderly frail patient lying in the bed comfortably, no acute distress General: Elderly, afebrile, palor, mucosae are moist Cardiovascular: Regular S1 and S2. No murmurs, gallops or rubs. No JVD elevation. No pedal edema Respiratory: Normal B/L air entry on room air. Clear lung sounds on auscultation Abdomen: Soft, nontender, nondistended, normoactive bowel sounds, no rebound tenderness, no organomegaly, no masses Genitourinary: Deferred MSK/skin: Mobilizes 4 limbs. Skin is dry and warm laboratory and microbiology Laboratory Tests 04/04/25 04:45 Test 04/04/25 04:45 Range/Units Serum Glucose 86 74-106 mg/dL Labs and/or images reviewed: Labs reviewed by me, Image(s) reviewed by me Problem List/Assessment/Plan Problem List/Assessment/Plan Chronic anemia likely microcytic Iron-deficiency anemia Uncontrolled hypertension Moderate size hiatal hernia ? Right gluteal region fluid collection History of hemorrhoids Dementia Pleural effusions CT abdomen shows dilated CBD measuring 20 mm. Small to moderate right and small left pleural effusion. Moderate-sized hiatal hernia. Moderate volume is within the colon. Right gluteal region fluid collection measuring 4.2 x 7.1 cm, indeterminate. Plan: Dr. Woodson: Given that the patient had scopes recently at [facility], and that per the son, the anemia is chronic. We recommend medical management at this time. Stool occult is positive. Follow up outpatient with [place]. Follow up with the ammonia levels. LFTs unremarkable, H&H stable. Iron panel consistent with iron-deficiency anemia, follow up with ferritin, IV iron 1 dose today Transfuse to keep hemoglobin greater than 7. Continue Protonix 40 mg IV daily and Carafate b.i.d. Lactulose 30 mL daily Continue pureed diet Plan discussed with the patient's son in which all questions have been answered Case discussed with Dr. Woodson Plan discussed with: Patient CC Plasma Assessment Blood Product Administration S: [id number] ELVIRA GABRIEL RESIDENT Apr 04, 2025 14:40
[2025-04-04] MEDS: FOLIC ACID 1 MG TAB PO SCH (15:49)
[2025-04-04] MEDS: LACTULOSE 20Gm/30ML SOLN PO ONE (15:50)
[2025-04-04] MEDS: POTASSIUM EFFERVESENT TAB 25 MEQ PO ONE (15:51)
--- NOTE | 2025-04-04 16:07 | DVHPN2 ---
Reviewed: H&P Changes from previous H/P or p: No Changes General: Per HPI Objective Vitals Vital Signs Date Time Temp Pulse Resp B/P (MAP) Pulse Ox O2 Delivery O2 Flow Rate FiO2 04/04/25 13:00 98.8 62 18 124/102 (109) 96 98.8 04/03/25 20:00 Room Air* 0 21 Intake/Output Intake and Output 04/04/25 07:00 Intake Total 990 ml Output Total 2400 ml Balance -1410 ml Intake Oral 880 ml IV Total 110 ml Output Urine Total 2400 ml Exam GENERAL:Normal, HEENT:Normal, NECK:Normal, LUNGS:Normal, CVS:Normal, ABDOMEN:Normal, MSK:Normal, SKIN:Normal, NEURO:Normal, :Normal Medications Current Medications Medications Dose Ordered Sig/Nancy Route Start Time Stop Time Status Last Admin Dose Admin Nitroglycerin 0.4 mg Q5MINP PRN SL 04/02/25 00:00 Morphine Sulfate 2 mg Q30M PRN IV 04/02/25 00:00 Donepezil HCl 10 mg HS PO 04/02/25 22:00 04/03/25 21:10 10 MG Furosemide 40 mg DAILY PO 04/03/25 10:00 04/04/25 10:33 40 MG Ondansetron HCl 4 mg Q4HP PRN IV 04/02/25 00:45 Acetaminophen 650 mg Q6HP PRN PO 04/02/25 00:45 Pantoprazole Sodium 40 mg DAILY IV 04/03/25 10:00 04/04/25 10:33 40 MG Hydralazine HCl 10 mg Q6HR IV 04/02/25 18:00 UNV Hydralazine HCl 10 mg Q6HR PRN IV 04/02/25 14:30 04/03/25 05:14 10 MG Folic Acid 1 mg DAILY PO 04/04/25 14:15 04/04/25 15:49 1 MG Lactulose 30 ml DAILY PO 04/05/25 10:00 Sucralfate 1 gm BID@0600,2200 PO 04/04/25 22:00 Ceftriaxone Sodium 50 ml @ 100 mls/hr DAILY@09 IV 04/05/25 09:00 Trazodone HCl 50 mg HS PO 04/04/25 22:00 Melatonin 5 mg HS PO 04/04/25 22:00 Laboratory Results Laboratory Tests 04/04/25 04:45 Chemistry Test 04/04/25 04:45 Calcium Level 8.5 mg/dL (8.7-10.4) L Magnesium Level 1.9 mg/dL (1.6-2.6) Urinalysis Test 04/03/25 05:45 Urine Color Colorless (Yellow) Urine Clarity Turbid (Clear) H Urine pH 7.0 (5.0-9.0) Urine Specific [place] 1.022 (1.001-1.035) Urine Protein 2+ (Negative) H Urine Ketones 1+ (Negative) H Urine Blood 3+ /uL (Negative) H Urine Nitrite Negative (Negative) Urine Bilirubin Negative (Negative) Urine Urobilinogen Normal mg/dL (Negative) Urine Leukocyte Esterase 2+ /uL (Negative) Urine RBC 433 /hpf (0 - 4) Urine Microscopic WBC 43 /HPF (0-5) H Urine Squamous Epithelial Cells None seen /hpf (<5) Urine Bacteria Few /hpf (None Seen) H Urine Mucus Few (None Seen) Urine Glucose 4+ mg/dL (Normal) H Labs and/or images reviewed: Labs reviewed by me, Image(s) reviewed by me Assessment/Plan Assessment/Plan 04/04: Hemoglobin stable today. Patient's UA concerning for UTI we will start ceftriaxone and when wait for urine culture. Patient had positive for fecal occult blood, concern for GI bleed. Anemia patient received packed RBC. Patient recently had colonoscopy with [facility], GI was consulted and recommend continue medical management. Patient is on Protonix and Carafate., no inpatient procedures advised by GI. Patient could possibly have anemia chronic disease. We will get reticulocyte index. Patient family was approached by possible hospice options, patient's family is considering. Patient's family declined transfer at this time to in network facility. 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 folic. #1 severe anemia: transfuse, gi eval, ct abdomen, iron panel, ppi #2 dementia #3 vit b 12 def: check level #4 acute systolic/diastolic heart failure: lasix iv #5 s/p fall/scalp hematoma Tele Full code Plan discussed with: Patient My Orders Orders - NEIL BANERJEE MD Procedure Category Date Status Time Folic Acid Tablet PHA 04/04/25 In Process 14:15 Reticulocyte Count LAB 04/05/25 Verified 04:00 Complete Blood Count LAB 04/05/25 Verified 04:00 Ceftriaxone 1gm/50ml PHA 04/05/25 In Process (Rocephin) 09:00 Trazodone Hcl PHA 04/04/25 In Process (Desyrel) 22:00 Melatonin (Melatonin) PHA 04/04/25 In Process 22:00 Date of Service: Apr 04, 2025 Billing Provider: NEIL BANERJEE MD Common Visit Codes: [id number] INP/OBS CARE(HIGH) NEIL BANERJEE MD Apr 04, 2025 16:07
[2025-04-04] MEDS: MELATONIN 5 MG TAB PO SCH (22:49)
[2025-04-04] MEDS: SUCRALFATE 1 GM/10 ML ORAL SUSP PO SCH (22:49)
[2025-04-05 01:00] VITALS: BP 123/80; PULSE 72; RESP 18; TEMP 97.7; O2SAT 96
[2025-04-05 05:00] VITALS: BP 115/68; PULSE 67; RESP 17; TEMP 98.3; O2SAT 95
[2025-04-05 06:43] LABS: Hemoglobin 8.5 g/dL (12.2-16.2)
[2025-04-05 06:46] LABS: Hematocrit 27.3 % (36.0-46.0); Mean Corpuscular Hemoglobin 20.6 pg (28.0-32.0); Mean Corpuscular Volume 66.1 fL (80.0-100.0); Nucleated Red Blood Cells % 0.4 %
[2025-04-05 08:00] VITALS: PULSE 85
[2025-04-05 08:47] VITALS: BP 121/75; PULSE 76; RESP 16; TEMP 98.1; O2SAT 97
[2025-04-05] MEDS: LACTULOSE 20Gm/30ML SOLN PO SCH (10:00)
--- NOTE | 2025-04-05 12:21 | DVHDS2 ---
Discharge Summary Date of Admission Apr 01, 2025 at 23:55 Date of Discharge: Apr 05, 2025 Labs/Diagnostic Data: Laboratory Results Test 04/05/25 05:52 04/04/25 14:39 04/04/25 10:45 04/04/25 04:45 White Blood Count 7.0 10^3/uL (4.4-10.8) Red Blood Count 4.13 10^6/uL (4.0-5.20) Hemoglobin 8.5 g/dL (12.2-16.2) Hematocrit 27.3 % (36.0-46.0) Mean Corpuscular Volume 66.1 fL (80.0-100.0) Mean Corpuscular Hemoglobin 20.6 pg (28.0-32.0) Mean Corpuscular Hemoglobin Concent 31.2 g/dL (32.0-36.0) Red Cell Distribution Width 29.0 % (11.8-14.3) Platelet Count 241 10^3/uL (140-450) Mean Platelet Volume 8.5 fL (6.9-10.8) Neutrophils (%) (Auto) 75.0 % (37.0-80.0) Lymphocytes (%) (Auto) 9.9 % (10.0-50.0) Monocytes (%) (Auto) 10.6 % (0.0-12.0) Eosinophils (%) (Auto) 3.7 % (0.0-7.0) Basophils (%) (Auto) 0.8 % (0.0-2.0) Neutrophils # (Auto) 5.3 10 ^3/uL (1.6-8.6) Lymphocytes # (Auto) 0.7 10 ^3/uL (0.4-5.4) Monocytes # (Auto) 0.7 10 ^3/uL (0-1.3) Eosinophils # (Auto) 0.3 10 ^3/uL (0-0.8) Basophils # (Auto) 0.1 10 ^3/uL (0-0.2) Nucleated Red Blood Cells 0.4 % Reticulocyte Count (auto) 3.23 % (0.5-1.5) Ammonia 34 umol/L (11-32) Stool Occult Blood Positive (Negative) Stool Occult Blood Sample #3 (Negative) Platelet Estimate Adequate Large Platelets Few Hypochromasia (manual) Marked Anisocytosis (manual) Moderate Microcytosis Marked Ovalocytes Few [place] Cells Few Sodium Level 133 mmol/L (136-145) Potassium Level 3.5 mmol/L (3.5-5.1) Chloride Level 100 mmol/L (98-107) Carbon Dioxide Level 24 mmol/L (20-31) Anion Gap 9 (5-15) Blood Urea Nitrogen 15 mg/dL (9-23) Creatinine 0.88 mg/dL (0.550-1.02) Glomerular Filtration Rate Calc 65 mL/min (>90) BUN/Creatinine Ratio 17.0 (10.0-20.0) Serum Glucose 86 mg/dL (74-106) Calcium Level 8.5 mg/dL (8.7-10.4) Magnesium Level 1.9 mg/dL (1.6-2.6) Test 04/03/25 05:51 04/03/25 05:45 04/02/25 13:18 04/01/25 23:33 Prothrombin Time 10.8 sec (9.3-11.8) Prothrombin Time INR 1.02 (0.9-1.15) Activated Partial Thromboplast Time 29.1 SEC (24.5-34.5) Total Bilirubin 0.6 mg/dL (0.2-1.0) Aspartate Amino Transferase (AST) 22 U/L (13-40) Alanine Aminotransferase (ALT) 13 U/L (7-40) Alkaline Phosphatase 106 U/L (46-116) Total Protein 5.8 g/dL (5.7-8.2) Albumin 3.4 g/dL (3.2-4.8) Thyroid Stimulating Hormone (TSH) 3.83 uIU/mL (0.55-4.78) Urine Color Colorless (Yellow) Urine Clarity Turbid (Clear) Urine pH 7.0 (5.0-9.0) Urine Specific [place] 1.022 (1.001-1.035) Urine Protein 2+ (Negative) Urine Ketones 1+ (Negative) Urine Blood 3+ /uL (Negative) Urine Nitrite Negative (Negative) Urine Bilirubin Negative (Negative) Urine Urobilinogen Normal mg/dL (Negative) Urine Leukocyte Esterase 2+ /uL (Negative) Urine RBC 433 /hpf (0 - 4) Urine Microscopic WBC 43 /HPF (0-5) Urine Squamous Epithelial Cells None seen /hpf (<5) Urine Bacteria Few /hpf (None Seen) Urine Mucus Few (None Seen) Urine Glucose 4+ mg/dL (Normal) Poikilocytosis (manual) Slight Tear Drop Cells Few Iron Level 50 ug/dL (50-170) Total Iron Binding Capacity 413 ug/dL (250-425) Percent Iron Saturation 12.1 % (15-50) Ferritin 10.7 ng/mL (10-291) Direct Bilirubin 0.3 mg/dL (<0.3) Vitamin B12 Level > 4000 pg/mL (211-911) Folic Acid 8.33 ng/mL (>5.38) Influenza Type A Antigen Negative (Negative) Influenza Type B Antigen Negative (Negative) SARS-CoV-2 Antigen (Rapid) Negative (NEGATIVE) Test 04/01/25 20:18 04/01/25 19:15 Troponin I High Sensitivity 15 ng/L (</=34) B-Type Natriuretic Peptide 519.17 pg/mL (0-100) POC Glucose 83 mg/dl (70-106) Other Laboratory Tests 04/05/25 05:52 04/04/25 04:45 Brief Hx & Hospital Course: 84-year-old female presents for evaluation of generalized weakness. Patient resides at a [facility] and [facility] facility. Patient was noted to be progressively weaker, fatigued and with decreased appetite. There is no reported melena or hematemesis. No blood thinners taken. No complaints of cardiac or respiratory issues. No unilateral weakness or slurred speech. - pmhx: dementia 04/04: Hemoglobin stable today. Patient's UA concerning for UTI we will start ceftriaxone and when wait for urine culture. Patient had positive for fecal occult blood, concern for GI bleed. Anemia patient received packed RBC. Patient recently had colonoscopy with [facility], GI was consulted and recommend continue medical management. Patient is on Protonix and Carafate., no inpatient procedures advised by GI. Patient could possibly have anemia chronic disease. We will get reticulocyte index. Patient family was approached by possible hospice options, patient's family is considering. Patient's family declined transfer at this time to in network facility. 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 04/05: Patient is ready for hospice per primary providers plan. We will discuss with son and continue with discharge plans for hospice. We will also send Keflex 500 mg b.i.d. for 5 days. Diagnosis: #1 severe anemia status post blood transfusion #2 dementia #3 vit b 12 deficiency #4 acute systolic/diastolic heart failure #5 s/p fall/scalp hematoma Plan: -continue discharge plan to hospice medical facility -Finish Keflex 500 mg b.i.d. for 5 days. Condition at Discharge: Guarded Final Diagnosis/Problems List #1 severe anemia status post blood transfusion #2 dementia #3 vit b 12 deficiency #4 acute systolic/diastolic heart failure #5 s/p fall/scalp hematoma Discharge Disposition: Hospice- Medical Facility Discharge Instruct/Medications Scheduled Cyanocobalamin (Vitamin B12), 500 MCG PO DAILY Donepezil Hydrochloride (Donepezil Hydrochloride), 1 TAB PO DAILY, (Reported) Ferrous Sulfate (Iron (Ferrous Sulfate)), Unknown Dose PO EOD, (Reported) Sertraline HCl (Sertraline HCl), 10 MG PO DAILY, (Reported) Discharge Statement: "Patient was advised to return to the ER or call 911 if any headaches, dizziness, shortness of breath, chest pain, abdominal pain, bleeding, fevers, or worsening of medical condition. Patient was counseled about treatment plan, medications, possible side effects, patientverbalized understanding. All questions were answered to the best of my ability. This discharge took greater then 30 minutes in planning, reviewing documentation, counseling the patient, and discussing with other team members." ASSESSMENT ASSESSMENT Assessment Date of Service: Apr 05, 2025 Billing Provider: NEIL BANERJEE MD Common Visit Codes: [id number] DISCH DAY >30min NEIL BANERJEE MD Apr 05, 2025 12:21
[2025-04-05 12:57] VITALS: BP 128/74; PULSE 61; RESP 17; TEMP 98.5; O2SAT 97
[2025-04-05] MEDS ORDERED: CEPH250C PO (13:59)
[2025-04-05 17:08] VITALS: BP 134/90; PULSE 74; RESP 16; TEMP 99; O2SAT 96
--- NOTE | 2025-04-05 19:28 | DVHPN2 ---
Progress Note - Dictate Date Seen: Apr 05, 2025 (Late entryTime of visit 10:00 a.m.) Medical Necessity Reason Pt with a Central, PICC or Fol: No Subjective No new complaints Stool is Hemoccult positive Patient is slightly more awake today Son is at the bedside vital signs Vital Sign Date Time Temp Pulse Resp B/P (MAP) Pulse Ox O2 Delivery O2 Flow Rate FiO2 04/05/25 17:08 99.0 74 16 134/90 (105) 96 99.0 04/05/25 08:00 Room Air* 0 21 Total Intake and Output 04/04/25 04/04/25 04/05/25 15:00 23:00 07:00 Intake Total 650 ml 200 ml Output Total 2820 ml 400 ml Balance -2170 ml -200 ml medications Current Medications Medications Dose Ordered Sig/Nancy Route Start Time Stop Time Status Last Admin Dose Admin Nitroglycerin 0.4 mg Q5MINP PRN SL 04/02/25 00:00 Morphine Sulfate 2 mg Q30M PRN IV 04/02/25 00:00 Furosemide 40 mg DAILY PO 04/03/25 10:00 04/05/25 10:18 40 MG Ondansetron HCl 4 mg Q4HP PRN IV 04/02/25 00:45 Acetaminophen 650 mg Q6HP PRN PO 04/02/25 00:45 Pantoprazole Sodium 40 mg DAILY IV 04/03/25 10:00 04/05/25 10:17 40 MG Hydralazine HCl 10 mg Q6HR IV 04/02/25 18:00 UNV Hydralazine HCl 10 mg Q6HR PRN IV 04/02/25 14:30 04/03/25 05:14 10 MG Folic Acid 1 mg DAILY PO 04/04/25 14:15 04/05/25 10:18 1 MG Lactulose 30 ml DAILY PO 04/05/25 10:00 Sucralfate 1 gm BID@0600,2200 PO 04/04/25 22:00 04/05/25 05:13 1 GM Ceftriaxone Sodium 50 ml @ 100 mls/hr DAILY@09 IV 04/05/25 09:00 04/05/25 10:18 100 MLS/HR Trazodone HCl 50 mg HS PO 04/04/25 22:00 04/04/25 22:49 50 MG Melatonin 5 mg HS PO 04/04/25 22:00 04/04/25 22:49 5 MG objective General: Elderly, afebrile, palor, mucosae are moist Cardiovascular: Regular S1 and S2. No murmurs, gallops or rubs. No JVD elevation. No pedal edema Respiratory: Normal B/L air entry on room air. Clear lung sounds on auscultation Abdomen: Soft, nontender, nondistended, normoactive bowel sounds, no rebound tenderness, no organomegaly, no masses Genitourinary: Deferred MSK/skin: Mobilizes 4 limbs. Skin is dry and warm laboratory and microbiology Laboratory Tests 04/05/25 05:52 04/04/25 04:45 Test 04/04/25 04:45 Range/Units Serum Glucose 86 74-106 mg/dL Problems(with codes): (1) Severe anemia (2) Abnormal CT scan, head Prognosis Plan Son was notified that stool was occult positive Option of a EGD colonoscopy discussed Family does not want any endoscopic intervention at this time and we will discuss with other family members Discharge planning is in progress with hospice Plan discussed with: Patient, Son CC Plasma Assessment Blood Product Administration S: [id number] IVANA GONZALEZ MD Apr 05, 2025 19:28
== END 2025-04-05 19:30 | disposition hospice, home (50) | DRG 811 ==
LOC: ER 18:55 → OVERFLOW 23:55 → TELE-WESTW 04-02 18:09 → TELE-CENTR 04-03 18:05
PROVIDERS: ADMIT Internal Medicine; ATTEND Internal Medicine
PROC: 30233N1 Transfusion of Nonautologous Red Blood Cells into Peripheral Vein, Percutaneous Approach (ICD-10-PCS; principal; 2025-04-02)
DX: D50.9 Iron deficiency anemia, unspecified (principal); I50.41 Acute combined systolic (congestive) and diastolic (congestive) heart failure; F03.90 Unspecified dementia, unspecified severity, without behavioral disturbance, psychotic disturbance, mood disturbance, and anxiety; S00.03XA Contusion of scalp, initial encounter; E53.8 Deficiency of other specified B group vitamins; K44.9 Diaphragmatic hernia without obstruction or gangrene; W19.XXXA Unspecified fall, initial encounter; K64.9 Unspecified hemorrhoids; Y93.89 Activity, other specified; Y92.89 Other specified places as the place of occurrence of the external cause; Y99.8 Other external cause status
CPT/HCPCS: 36415; 36430; 70450; 71045; 74176; 80048; 80053; 80076; 81001; 82140; 82270; 82607; 82728; 82746; 82962; 83540; 83550; 83735; 83880; 84443; 84484; 85025; 85045; 85610; 85730; 86850; 86900; 86901; 86920; 87426; 87804; 93306; 97110; 97163; G0378; J1756; J2470